=== PATIENT | male | born 1945 | race Caucasian/White ===

== ENCOUNTER 2021-09-23 08:03 | Emergency (ER) | payer MEDICARE, OTHER ==
[~2021-09-23] VITALS: Ht 175.3 cm; Wt 81.6 kg
--- NOTE | 2021-09-23 08:14 | ED Cough/URI ---
General Stated Complaint: COUGH,SOB Source: patient Exam Limitations: no limitations (BARRY HUYNH MD) History of Present Illness Date Seen by Provider: Sep 23, 2021 Time Seen by Provider: 08:16 Initial Comments Patient is a 76-year-old male who presents to the emergency department today with a chief complaint of progressive worsening shortness of breath over the last 2 weeks. 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 He is followed at . Last infusion of Keytruda was last Monday. He states for a couple of weeks he has had a dry nonproductive cough but in the last few days his shortness of breath is gotten significantly worse. He occasionally has hemoptysis and does so this morning. He has never had a blood clot or pulmonary embolism. He smoked 50 years ago. He does not require oxygen at home. Normally he states his sats are in the 98% range. On arrival to the ER he was 89, 90%. He denies fevers or chills. No known COVID positive contacts. He states that he masks with an N95 religiously. He is COVID vaccinated. He does not require the use of inhalers or a nebulizer machine at home ever. Denies swelling in his legs or cramping in his calves. No other URI symptoms. He called [facility] this morning and they advised to come to the emergency department and get a CAT scan of his chest. Patient is noted to be slightly tachycardic with a heart rate of 100. Blood pressure is slightly hypertensive. On 1-1/2 to 2 L he is 92%. No increased work of breathing or respiratory distress is noted. He can complete full sentences. He is diffusely wheezy. All other review of systems reviewed and negative except as stated. Timing/Duration: getting worse Severity/Quality: productive cough (Hemoptysis) Prior Episodes/Possible Cause: occasional episodes Associated Symptoms: chest pain/soreness (Has had a little bit of sharp pain in his chest with cough), cough, shortness of breath, wheezing (BARRY HUYNH MD) Allergies and Home Medications Allergies Coded Allergies: No Known Drug Intolerances (Verified Allergy, Unknown, 09/23/21) Patient Home Medication List Home Medication List Reviewed: Yes (BARRY HUYNH MD) Review of Systems Review of Systems Constitutional: see HPI EENTM: no symptoms reported Respiratory: cough, hemoptysis, short of breath Cardiovascular: chest pain (Sharp) Gastrointestinal: no symptoms reported Genitourinary: no symptoms reported Musculoskeletal: no symptoms reported Skin: no symptoms reported Psychiatric/Neurological: No Symptoms Reported (BARRY HUYNH MD) All Other Systems Reviewed Negative Unless Noted: Yes (BARRY HUYNH MD) Physical Exam Vital Signs - First Documented 09/23/21 08:12 Temp 37.0 Pulse 99 Resp 17 B/P (MAP) 183/88 (119) Pulse Ox 95 O2 Delivery Nasal Cannula O2 Flow Rate 2.00 (PRABHAKAR LÓPEZ DO) Capillary Refill : (BARRY HUYNH MD) Height: '" Weight: lbs. oz. kg; BMI Method: General Appearance: WD/WN, no apparent distress Eyes: Bilateral Eye Normal Inspection, Bilateral Eye PERRL, Bilateral Eye EOMI HEENT: PERRL/EOMI Neck: normal inspection Respiratory: no respiratory distress, no accessory muscle use; No decreased breath sounds, No accessory muscle use; wheezing Cardiovascular: regular rate, rhythm, tachycardia (100) Gastrointestinal: normal bowel sounds, non tender, soft Extremities: normal range of motion, non-tender, normal inspection, no pedal edema, no calf tenderness, other (Prior amputation right hand) Neurologic/Psychiatric: alert, normal mood/affect, oriented x 3 Skin: normal color, warm/dry (BARRY HUYNH MD) Progress/Results/Core Measures Suspected Sepsis SIRS Temperature: Pulse: Respiratory Rate: Laboratory Tests 09/23/21 08:34: White Blood Count 5.1 Blood Pressure / Mean: Laboratory Tests 09/23/21 08:34: Creatinine 1.18, INR Comment 1.0, Platelet Count 217, Total Bilirubin 0.6 (BARRY HUYNH MD) Results/Orders Lab Results Laboratory Tests Test 09/23/21 08:19 09/23/21 08:34 Range/Units SARS-CoV-2 RNA (RT-PCR) Not Detected Not Detecte White Blood Count 5.1 4.3-11.0 10^3/uL Red Blood Count 4.87 4.30-5.52 10^6/uL Hemoglobin 12.6 L 13.3-17.7 g/dL Hematocrit 39 L 40-54 % Mean Corpuscular Volume 81 80-99 fL Mean Corpuscular Hemoglobin 26 25-34 pg Mean Corpuscular Hemoglobin Concent 32 32-36 g/dL Red Cell Distribution Width 15.7 H 10.0-14.5 % Platelet Count 217 130-400 10^3/uL Mean Platelet Volume 9.5 9.0-12.2 fL Immature Granulocyte % (Auto) 0 % Neutrophils (%) (Auto) 70 42-75 % Lymphocytes (%) (Auto) 17 12-44 % Monocytes (%) (Auto) 7 0-12 % Eosinophils (%) (Auto) 6 0-10 % Basophils (%) (Auto) 1 0-10 % Neutrophils # (Auto) 3.5 1.8-7.8 10^3/uL Lymphocytes # (Auto) 0.8 L 1.0-4.0 10^3/uL Monocytes # (Auto) 0.4 0.0-1.0 10^3/uL Eosinophils # (Auto) 0.3 0.0-0.3 10^3/uL Basophils # (Auto) 0.0 0.0-0.1 10^3/uL Immature Granulocyte # (Auto) 0.0 0.0-0.1 10^3/uL Prothrombin Time 13.7 12.2-14.7 SEC INR Comment 1.0 0.8-1.4 Activated Partial Thromboplast Time 31 24-35 SEC Sodium Level 144 135-145 MMOL/L Potassium Level 3.9 3.6-5.0 MMOL/L Chloride Level 111 H 98-107 MMOL/L Carbon Dioxide Level 20 L 21-32 MMOL/L Anion Gap 13 5-14 MMOL/L Blood Urea Nitrogen 15 7-18 MG/DL Creatinine 1.18 0.60-1.30 MG/DL Estimat Glomerular Filtration Rate 64 BUN/Creatinine Ratio 13 Glucose Level 104 70-105 MG/DL Calcium Level 8.8 8.5-10.1 MG/DL Corrected Calcium 9.0 8.5-10.1 MG/DL Total Bilirubin 0.6 0.1-1.0 MG/DL Aspartate Amino Transf (AST/SGOT) 12 5-34 U/L Alanine Aminotransferase (ALT/SGPT) 12 0-55 U/L Alkaline Phosphatase 85 40-136 U/L Total Protein 6.0 L 6.4-8.2 GM/DL Albumin 3.7 3.2-4.5 GM/DL (MARIBEL,PRABHAKAR K DO) My Orders Orders - MARIBELJIMMYA K DO Lorazepam Tablet (Ativan Tablet) (09/23/21 18:15) Lorazepam Tablet (Ativan Tablet) (09/23/21 18:19) (MARIBEL,PRABHAKAR K DO) Medications Given in ED Current Medications Medications Dose Ordered Sig/Shane Route Start Time Stop Time Status Last Admin Dose Admin Fentanyl Citrate 50 mcg ONCE ONCE IVP 09/23/21 09:30 09/23/21 09:31 DC 09/23/21 09:36 50 MCG Fentanyl Citrate 50 mcg ONCE ONCE IVP 09/23/21 09:45 09/23/21 09:46 DC 09/23/21 09:59 50 MCG Iohexol 100 ml ONCE ONCE IV 09/23/21 09:45 09/23/21 09:47 DC 09/23/21 10:53 85 ML Lidocaine HCl 20 ml ONCE ONCE INJ 09/23/21 12:45 09/23/21 12:46 DC 09/23/21 12:50 20 ML Lorazepam 0.5 mg STK-MED ONCE .ROUTE 09/23/21 18:19 09/23/21 18:21 DC 09/23/21 18:22 1 MG Sodium Chloride 100 ml ONCE ONCE IV 09/23/21 09:45 09/23/21 09:47 DC 09/23/21 10:53 80 ML (MARIBEL,PRABHAKAR K DO) Vital Signs/I&O 09/23/21 09/23/21 08:12 08:12 Temp 37.0 Pulse 99 Resp 17 B/P (MAP) 183/88 (119) Pulse Ox 95 O2 Delivery Nasal Cannula Nasal Cannula O2 Flow Rate 2.00 (MARIBELPRABHAKAR K DO) Vital Signs/I&O Capillary Refill : (BARRY HUYNH MD) Progress Note #1: Time: 10:24 Progress Note SPoke with Dr Aj (surg) will be down to see. Patient pain improved. sats96% on 2L O2. 30-40% ptx on the left. obvious masses ion chest xray. pending CT Progress Note #2: Time: 11:57 Progress Note first call to [facility]; awaiting call back Progress Note #3: Time: 13:15 Progress Note Thora vent placed with Dr. Aj. Patient tolerated the procedure well. Postprocedural chest x-ray shows that the lung has reexpanded. Vital signs remained stable. Just after we placed the Thora vent [facility] called at approximately 1 PM. They have an accepting physician for our patient, Dr. Fowler has accepted. Progress Note #4: Time: 17:25 Progress Note Patient resting comfortably. I checked in with [facility] about 45 min ago - Still no bed assignment, Progress Note #5: Time: 17:38 Progress Note bed assignment obtained. LUPE Valentine arranging transport (BARRY HUYNH MD) Progress Note : Progress Note 1800--ASSUMED CARE OF PT, PENDING TRANSFER. 1830--[facility] HERE FOR TRANSPORT. PT HAD C/O BEING ANXIOUS, AND [facility] ORDERED PRIOR TO TRANSPORT (PRABHAKAR LÓPEZ DO) ECG Initial ECG Impression Date: Sep 23, 2021 Initial ECG Impression Time: 08:36 Initial ECG Rate: 96 Initial ECG Rhythm: Normal Sinus Initial ECG Intervals: Normal Initial ECG Impression: Normal Comment No ectopy, no ST segment elevation or depression; (BARRY HUYNH MD) Diagnostic Imaging Diagonstic Imaging: Xray Plain Films/CT/US/NM/MRI: chest Comments [facility] [place] [place] NAME: TRICIA MCFADDEN [facility] REC#: [id number] PT STATUS: REG ER : 1945 PHYSICIAN: BARRY HUYNH MD ADMIT DATE: 09/23/21/ER Draft Date of Exam:09/23/21 CHEST 1 VIEW, AP/PA ONLY INDICATION: Hypoxia, cough Frontal chest obtained at 1003 a.m. There is no prior study for comparison. Heart is mildly enlarged. There are multiple bilateral pulmonary masses suspicious for metastatic disease. There is a left apical and lateral basal pneumothorax, occupying about 30-40% of the lung volume. There is no pleural fluid. IMPRESSION: Bilateral pulmonary lesions are present compatible with metastases. There is a left pneumothorax as described above. Results were called to the Emergency Room at the time of dictation. Dictated on workstation # [id number] Dict: 09/23/21 1010 Trans: 09/23/21 1016 [facility] [place] [id number] Interpreted by: STANISLAW STEVE MD Electronically signed by: [facility]: CT Comments [facility] [place] NAME: TRICIA MCFADDEN [facility] REC#: [id number] PT STATUS: REG ER : 1945 PHYSICIAN: BARRY HUYNH MD ADMIT DATE: 09/23/21/ER Draft Date of Exam:09/23/21 CT ANGIO CHEST/ABD W PROCEDURE: CT angiography of the abdomen and chest with and without contrast. TECHNIQUE: After intravenous administration of contrast, thin section axial CT angiography of the abdomen and chest were obtained. 3D MIP reformats were provided. Auto Exposure Controls were utilized during the CT exam to meet ALARA standards for radiation dose reduction. INDICATION: Sarcoma. Patient had sudden onset of abdominal pain and hemoptysis. No prior studies are available for comparison. CT angiogram chest: The thoracic aorta is of normal caliber. No dissection is identified. Central pulmonary arteries are patent. There is a pericardial effusion. There is a moderate-sized right pleural effusion. No axillary lymphadenopathy is identified. No definite mediastinal lymphadenopathy is identified. There are multiple pulmonary masses consistent with metastatic disease. A large mass in the right infrahilar location measures approximately 7.7 cm AP by 7.2 cm transverse. The patient does have a large left pneumothorax as well, this is described on the chest radiograph earlier same day and called to the emergency department. CT ABDOMEN: There are low-attenuation lesions within the liver which appear to represent cysts. No definite solid liver mass is identified. The gallbladder surgically absent. The pancreas and spleen are unremarkable. No adrenal mass is detected. Kidneys contain low-attenuation lesions consistent with cysts. Aorta is nonaneurysmal. No abdominal aortic dissection is identified. The bowel loops are of normal caliber. There is no ascites. No central retroperitoneal or mesenteric lymphadenopathy is detected. Bony structures are nonacute. IMPRESSION: 1. A large left pneumothorax. 2. Pericardial effusion and moderate right pleural effusion. 3. Numerous bilateral pulmonary masses consistent with pulmonary metastatic disease. 4. Hepatic and renal cysts. 5. No evidence of thoracic or abdominal aortic aneurysm or dissection. Dictated on workstation # [id number] Dict: 09/23/21 1100 Trans: 09/23/21 1108 [facility] [id number] Interpreted by: ELOISE JOHN MD Electronically signed by: [facility]: Xray Plain Films/CT/US/NM/MRI: chest Comments [facility] [place] NAME: TRICIA MCFADDEN [facility] REC#: [id number] PT STATUS: REG ER : 1945 PHYSICIAN: BARRY HUYNH MD ADMIT DATE: 09/23/21/ER Signed Date of Exam:09/23/21 CHEST 1 VIEW, AP/PA ONLY INDICATION: Chest tube placement. TECHNIQUE: Frontal chest obtained at 01:10 p.m. and compared to same day at 10:03 a.m. FINDINGS: New left-sided pleural catheter is in place. The left pneumothorax seen previously has resolved. Multiple lung masses are noted, compatible with metastases. There is no significant pleural fluid. IMPRESSION: Resolution of previous left pneumothorax after left pleural catheter placement. Multiple suspicious pulmonary lesions are noted which are likely metastatic. 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 Fowler Transfer Facility: [facility] Method of Transfer: EMS (BARRY HUYNH MD) Departure-Patient Inst. Referrals: NO,LOCAL PHYSICIAN (PCP/Family) Primary Care Physician BARRY HUYNH MD Sep 23, 2021 08:14 PRABHAKAR LÓPEZ DO Sep 23, 2021 18:41
[2021-09-23 08:59] LABS: BASOPHILS % (AUTO) 1 % (0-10); EOSINOPHILS # (AUTO) 0.3 10^3/uL (0.0-0.3); EOSINOPHILS % (AUTO) 6 % (0-10); HEMATOCRIT 39 % (40-54); HEMOGLOBIN 12.6 g/dL (13.3-17.7); LYMPHOCYTES # (AUTO) 0.8 10^3/uL (1.0-4.0); LYMPHOCYTES % (AUTO) 17 % (12-44); MEAN CORPUSCULAR HEMOGLOBIN 26 pg (25-34); MEAN CORPUSCULAR HGB CONC 32 g/dL (32-36); MEAN CORPUSCULAR VOLUME 81 fL (80-99); MEAN PLATELET VOLUME 9.5 fL (9.0-12.2); MONOCYTES # (AUTO) 0.4 10^3/uL (0.0-1.0); MONOCYTES % (AUTO) 7 % (0-12); NEUTROPHILS # (AUTO) 3.5 10^3/uL (1.8-7.8); NEUTROPHILS % (AUTO) 70 % (42-75); PLATELET COUNT 217 10^3/uL (130-400); WHITE BLOOD COUNT 5.1 10^3/uL (4.3-11.0)
[2021-09-23 09:14] LABS: PROTHROMBIN TIME PATIENT 13.7 SEC (12.2-14.7)
[2021-09-23 09:24] LABS: ALBUMIN 3.7 GM/DL (3.2-4.5); BILIRUBIN,TOTAL 0.6 MG/DL (0.1-1.0); CALCIUM 8.8 MG/DL (8.5-10.1); CREATININE SERUM 1.18 MG/DL (0.60-1.30); POTASSIUM 3.9 MMOL/L (3.6-5.0)
[2021-09-23] MEDS ORDERED: fentaNYL INJ 100 MCG/2 ML AMP IVP ONE ×2 (09:30→09:45)
[2021-09-23] MEDS ORDERED: NS 100 ML (IVPB) BAG IV ONE (09:45)
[2021-09-23] MEDS ORDERED: IOHEXOL 350 MG/ML 100 ML (OMNIPAQUE 350) VIAL IV ONE (09:45)
--- NOTE | 2021-09-23 10:17 | Diagnostic Imaging Report ---
INDICATION: Hypoxia, cough Frontal chest obtained at 1003 a.m. There is no prior study for comparison. Heart is mildly enlarged. There are multiple bilateral pulmonary masses suspicious for metastatic disease. There is a left apical and lateral basal pneumothorax, occupying about 30-40% of the lung volume. There is no pleural fluid. IMPRESSION: Bilateral pulmonary lesions are present compatible with metastases. There is a left pneumothorax as described above. Results were called to the Emergency Room at the time of dictation. Dictated by: Dictated on workstation # [id number]
[2021-09-23] MEDS ORDERED: morphine INJ 10 MG/ML 1ML (SYR OR VIAL) IVP STA ×2 (11:05→14:58)
--- NOTE | 2021-09-23 11:09 | Diagnostic Imaging Report ---
PROCEDURE: CT angiography of the abdomen and chest with and without contrast. TECHNIQUE: After intravenous administration of contrast, thin section axial CT angiography of the abdomen and chest were obtained. 3D MIP reformats were provided. Auto Exposure Controls were utilized during the CT exam to meet ALARA standards for radiation dose reduction. INDICATION: Sarcoma. Patient had sudden onset of abdominal pain and hemoptysis. No prior studies are available for comparison. CT angiogram chest: The thoracic aorta is of normal caliber. No dissection is identified. Central pulmonary arteries are patent. There is a pericardial effusion. There is a moderate-sized right pleural effusion. No axillary lymphadenopathy is identified. No definite mediastinal lymphadenopathy is identified. There are multiple pulmonary masses consistent with metastatic disease. A large mass in the right infrahilar location measures approximately 7.7 cm AP by 7.2 cm transverse. The patient does have a large left pneumothorax as well, this is described on the chest radiograph earlier same day and called to the emergency department. CT ABDOMEN: There are low-attenuation lesions within the liver which appear to represent cysts. No definite solid liver mass is identified. The gallbladder surgically absent. The pancreas and spleen are unremarkable. No adrenal mass is detected. Kidneys contain low-attenuation lesions consistent with cysts. Aorta is nonaneurysmal. No abdominal aortic dissection is identified. The bowel loops are of normal caliber. There is no ascites. No central retroperitoneal or mesenteric lymphadenopathy is detected. Bony structures are nonacute. IMPRESSION: 1. A large left pneumothorax. 2. Pericardial effusion and moderate right pleural effusion. 3. Numerous bilateral pulmonary masses consistent with pulmonary metastatic disease. 4. Hepatic and renal cysts. 5. No evidence of thoracic or abdominal aortic aneurysm or dissection. Dictated by: Dictated on workstation # [id number]
--- NOTE | 2021-09-23 11:47 | Consultation - Surgery ---
TUCKER FERRER 09/23/21 1147: History of Present Illness History of Present Illness Patient Consulted On(shauna/time) 09/23/21 11:40 Date Seen by Provider: Sep 23, 2021 Time Seen by Provider: 11:41 History of Present Illness Consulted by Dr. Marx for this patient. Patient is a 76 y/o M with hx of sarcoma that has metastasized to the lungs presenting with CC of worsening shortness of breath which onset about a week ago. Patient reports he had sarcoma of the right hand which had to be removed and that the cancer has metastasized to his lungs. He is being treated at and received his last tx a week ago, after which his symptoms had started. He also reports some episodes of hemoptysis. Denies any fever or chills at this time. Has some RUQ tenderness to palpation. After calling this morning he was told to come to the ED for evaluation. Chest XR today shows bilateral pulmonary lesions compatible with metastases. There is also a left pneumothorax. Chest CT today also confirms a large left pneumothorax. EKG done today was normal. Pt is not any blood thinners. 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 ) Cancer History of Cancer: Yes (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) Review of Systems-General Constitutional: No chills, No diaphoresis EENTM: No hearing loss, No blurred vision Respiratory: cough, short of breath Cardiovascular: No chest pain, No palpitations Gastrointestinal: abdominal pain (RUQ); No nausea Genitourinary: No decreased output, No discharge Musculoskeletal: No back pain, No joint pain Skin: No change in color, No change in hair/nails Physical Exam-General Problems Physical Exam Vital Signs Vital Signs - First Documented 09/23/21 08:12 Temp 37.0 Pulse 99 Resp 17 B/P (MAP) 183/88 (119) Pulse Ox 95 O2 Delivery Nasal Cannula O2 Flow Rate 2.00 Capillary Refill : Less Than 3 Seconds General Appearance: WD/WN, no apparent distress HEENT: PERRL/EOMI, normal ENT inspection Neck: supple, normal inspection Respiratory: chest non-tender, no accessory muscle use Cardiovascular: no edema, no JVD Gastrointestinal: soft, tenderness (RUQ) Rectal: deferred Back: normal inspection, no CVA tenderness Extremities: normal range of motion, non-tender Neurologic/Psychiatric: alert, normal mood/affect Skin: normal color, warm/dry Lymphatic: no adenopathy Data Review Labs Laboratory Tests 09/23/21 08:19: SARS-CoV-2 RNA (RT-PCR) Not Detected 09/23/21 08:34: White Blood Count 5.1, Red Blood Count 4.87, Hemoglobin 12.6L, Hematocrit 39L, Mean Corpuscular Volume 81, Mean Corpuscular Hemoglobin 26, Mean Corpuscular Hemoglobin Concent 32, Red Cell Distribution Width 15.7H, Platelet Count 217, Mean Platelet Volume 9.5, Immature Granulocyte % (Auto) 0, Neutrophils (%) (Auto) 70, Lymphocytes (%) (Auto) 17, Monocytes (%) (Auto) 7, Eosinophils (%) (Auto) 6, Basophils (%) (Auto) 1, Neutrophils # (Auto) 3.5, Lymphocytes # (Auto) 0.8L, Monocytes # (Auto) 0.4, Eosinophils # (Auto) 0.3, Basophils # (Auto) 0.0, Immature Granulocyte # (Auto) 0.0, Prothrombin Time 13.7, INR Comment 1.0, Activated Partial Thromboplast Time 31, Sodium Level 144, Potassium Level 3.9, Chloride Level 111H, Carbon Dioxide Level 20L, Anion Gap 13, Blood Urea Nitrogen 15, Creatinine 1.18, Estimat Glomerular Filtration Rate 64, BUN/Creatinine Ratio 13, Glucose Level 104, Calcium Level 8.8, Corrected Calcium 9.0, Total Bilirubin 0.6, Aspartate Amino Transf (AST/SGOT) 12, Alanine Aminotransferase (ALT/SGPT) 12, Alkaline Phosphatase 85, Total Protein 6.0L, Albumin 3.7 Assessment/Plan Assessment/Plan Assessment/Plan Left Lung Pneumothorax 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 Patient is a 76-year-old male with history of sarcoma of the right hand which she has had right upper extremity amputation. He is also with no metastasis to his lungs. Has been treated at . Patient presented to the emergency department with some abdominal pain more in the right upper quadrant. He is also having increasing shortness of breath and weakness. Patient states nothing making things better or worse. Patient had a chest x-ray demonstrating a left pneumothorax and multiple masses of the bilateral lungs. CT of the chest demonstrating multiple lung masses and large left pneumothorax and right pleural effusion. Allergies and Home Medications Allergies Coded Allergies: No Known Drug Intolerances (Verified Allergy, Unknown, 09/23/21) Patient Home Medication List Home Medication List Reviewed: Yes Past Gzgxuej-Gvhnqu-Lfkhow Hx Surgeries Surgeries: Amputation, Gallbladder (cholecystectomy) Reviewed Nursing Assessment Reviewed/Agree w Nursing PMH: Yes Family Medical History Significant Family History: No Pertinent Family Hx Review of Systems-General Constitutional: No chills, No diaphoresis EENTM: No hearing loss, No blurred vision Respiratory: cough, short of breath Cardiovascular: No chest pain, No palpitations Gastrointestinal: abdominal pain (RUQ); No nausea, No vomiting Genitourinary: No decreased output, No discharge Musculoskeletal: No back pain, No joint pain Skin: No change in color, No change in hair/nails Psychiatric/Neurological: Denies Anxiety, Denies Depressed, Denies Emotional Problems All Other Systems Reviewed Negative Unless Noted: Yes (Negative excepted noted.) Physical Exam-General Problems Physical Exam General Appearance: WD/WN, no apparent distress HEENT: PERRL/EOMI, normal ENT inspection Neck: non-tender, supple, normal inspection Respiratory: chest non-tender, no accessory muscle use Cardiovascular: regular rate, rhythm, no JVD Gastrointestinal: soft, tenderness (RUQ) Rectal: deferred Back: normal inspection, no CVA tenderness Extremities: normal range of motion, non-tender, other (Right forearm amputation) Neurologic/Psychiatric: alert, normal mood/affect, oriented x 3 Skin: normal color, warm/dry Lymphatic: no adenopathy Assessment/Plan Assessment/Plan Assessment/Plan Left lung pneumothorax Shortness of breath 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 Patient understands and will proceed with left Thora vent p lacement. Patient with possible cause of pneumothorax due to metastatic lung lesion likely will need thoracic consultation. Patient being transferred to arranged by emergency physician. Supervisory-Addendum Brief Verification & Attestation Participated in pt care: history, MDM, physical Personally performed: exam, history, MDM, supervision of care Care discussed with: Medical Student Procedures: n/a Results interpretation: Verified all documentation Verification and Attestation of Medical Student E/M Service A medical student performed and documented this service in my presence. I reviewed and verified all information documented by the medical student and made modifications to such information, when appropriate. I personally performed the physical exam and medical decision making. Pablo Aj, Sep 23, 2021,21:16 TUCKER FERRER Sep 23, 2021 11:47 PABLO AJ DO Sep 23, 2021 21:16
[2021-09-23] MEDS ORDERED: LIDOCAINE 1% INJ 20 ML VIAL INJ ONE (12:45)
--- NOTE | 2021-09-23 13:23 | Diagnostic Imaging Report ---
INDICATION: Chest tube placement. TECHNIQUE: Frontal chest obtained at 01:10 p.m. and compared to same day at 10:03 a.m. FINDINGS: New left-sided pleural catheter is in place. The left pneumothorax seen previously has resolved. Multiple lung masses are noted, compatible with metastases. There is no significant pleural fluid. IMPRESSION: Resolution of previous left pneumothorax after left pleural catheter placement. Multiple suspicious pulmonary lesions are noted which are likely metastatic. Dictated by: Dictated on workstation # [id number]
[2021-09-23] MEDS ORDERED: LORazepam 1 MG (ATIVAN) TAB PO ONE (18:15)
[2021-09-23] MEDS ORDERED: LORazepam 0.5 MG (ATIVAN) TABLET ONE (18:19)
[2021-09-23 18:33] VITALS: BP 137/68
--- NOTE | 2021-09-24 06:07 | OPERATIVE REPORT ---
DATE OF SERVICE: 09/23/2021 PREOPERATIVE DIAGNOSIS: Left pneumothorax. POSTOPERATIVE DIAGNOSIS: Left pneumothorax. PROCEDURE: Left Thora-Vent placement. SURGEON: Pablo Aj DO. ANESTHESIA: Local anesthetic. ESTIMATED BLOOD LOSS: Scant. COMPLICATIONS: None. INDICATIONS: The patient is a 76-year-old male who presented to the Emergency Department. He was found to have a moderate to large left pneumothorax. He understands risks and benefits of procedure and wishes to proceed. Consent was signed in the chart. DESCRIPTION OF PROCEDURE: The patient was lying down in the supine position. The left chest was prepped and draped in sterile fashion. Timeout was performed. Local anesthetic was infiltrated at the midclavicular line approximately the fourth rib interspace. An 11-blade scalpel was used to make a small skin incision. The Thora-Vent was then inserted through the anterior chest wall. Once this popped into the chest cavity, the catheter was then advanced, and the trocar was removed. The Thora-Vent was secured in the usual fashion. Air was evacuated. The patient tolerated procedure well without any complications. Chest x-ray pending. Job ID: [id number] DocumentID: [id number] Dictated Date: 09/23/2021 20:14:06 Gmat Tutor Date: 09/24/2021 06:07:33 Dictated By: PABLO AJ DO
== END 2021-09-23 18:33 | disposition short-term general hospital (02) ==
LOC: ER 08:08
DX: J93.9 Pneumothorax, unspecified (principal); C34.90 Malignant neoplasm of unspecified part of unspecified bronchus or lung; Z20.822 Contact with and (suspected) exposure to COVID-19
CPT/HCPCS: 36415; 71045; 71275; 74175; 80053; 85025; 85610; 85730; 87636

== ENCOUNTER 2021-09-28 17:05 | Observation (INO) | payer MEDICARE ==
[~2021-09-28] VITALS: Ht 175.3 cm; Wt 83.9 kg
[2021-09-28 17:38] LABS: BILIRUBIN,URINE NEGATIVE (NEGATIVE); CLARITY,URINE CLEAR; COLOR,URINE YELLOW; GLUCOSE, URINE (UA) NEGATIVE (NEGATIVE); KETONES,URINE NEGATIVE (NEGATIVE); LEUKOCYTE ESTERASE ,URINE 2+ (NEGATIVE); NITRITE,URINE NEGATIVE (NEGATIVE); PROTEIN,URINE NEGATIVE (NEGATIVE)
[2021-09-28] MEDS ORDERED: NS IV 500 ML 500 ML IV STA (17:44)
--- NOTE | 2021-09-28 17:48 | ED GU-Male ---
General Chief Complaint: - Reproductive Stated Complaint: ABDOMINAL PAIN Source: patient Exam Limitations: no limitations History of Present Illness Date Seen by Provider: Sep 28, 2021 Time Seen by Provider: 17:45 Initial Comments Patient is a 76-year-old male who presents to the ED with lower back pain and suprapubic pain. Started a few hours ago while driving back from [facility]. Was discharged from [facility] after being diagnosed with a pneumothorax was seen here last week and transferred. Denies any chest pain or shortness of breath. History of kidney stones with surgical removal of his prostate. He had several stones removed at [facility] in the past. States he had decreased urine output while driving down from [facility] but did urinate which relieved some of his discomfort. He reports of burning after urination on arrival. No fever, vomiting, diarrhea, chest pain, cough, shortness of breath, fever, chills, change in mental state. Diagnosed with metastatic carcinoma. Allergies and Home Medications Allergies Coded Allergies: No Known Drug Intolerances (Verified Allergy, Unknown, 09/23/21) Patient Home Medication List Home Medication List Reviewed: Yes Cefdinir (Cefdinir) 300 Mg Capsule, 300 MG PO BID Prescribed by: MATILDE HUYNH on 09/29/21 1122 Review of Systems Review of Systems Constitutional: No chills, No diaphoresis, No malaise, No weakness EENTM: No blurred vision Respiratory: No cough Cardiovascular: No chest pain Gastrointestinal: No abdominal pain, No diarrhea, No nausea, No vomiting Genitourinary: burning; denies discharge, denies dysuria, denies frequency; flank pain Musculoskeletal: back pain; No joint pain Skin: No change in color All Other Systemes Reviewed Negative Unless Noted: Yes Past Xvkgrdz-Smttfh-Fbdrqx Hx Past Medical History Amputation, 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 oz. kg; 26.00 BMI Method: General Appearance: WD/WN, no apparent distress HEENT: PERRL/EOMI, normal ENT inspection, TMs normal, pharynx normal Neck: non-tender, full range of motion, supple Cardiovascular: regular rate, rhythm, no edema, no gallop, no JVD Respiratory: chest non-tender, lungs clear, normal breath sounds Gastrointestinal: normal bowel sounds, soft, no organomegaly, tenderness (Suprapubic tenderness.) Back: normal inspection, no CVA tenderness, no vertebral tenderness Extremities: normal range of motion, non-tender, normal inspection, no pedal edema Neurologic/Psychiatric: farmer vegetable II-XII nml as tested, no motor/sensory deficits, alert, normal mood/affect, oriented x 3 Skin: normal color, warm/dry Progress/Results/Core Measures Suspected Sepsis SIRS Temperature: Pulse: Respiratory Rate: Laboratory Tests 09/28/21 17:53: White Blood Count 6.0 Blood Pressure / Mean: Laboratory Tests 09/28/21 17:53: Creatinine 1.19, Platelet Count 244, Total Bilirubin 0.4 Results/Orders Lab Results Laboratory Tests Test 09/28/21 17:14 09/28/21 17:53 Range/Units Urine Color YELLOW Urine Clarity CLEAR Urine pH 5.0 5-9 Urine Specific [place] 1.010 L 1.016-1.022 Urine Protein NEGATIVE NEGATIVE Urine Glucose (UA) NEGATIVE NEGATIVE Urine Ketones NEGATIVE NEGATIVE Urine Nitrite NEGATIVE NEGATIVE Urine Bilirubin NEGATIVE NEGATIVE Urine Urobilinogen 0.2 < = 1.0 MG/DL Urine Leukocyte Esterase 2+ H NEGATIVE Urine RBC (Auto) NEGATIVE NEGATIVE Urine RBC NONE /HPF Urine WBC 5-10 H /HPF Urine Squamous Epithelial Cells 2-5 /HPF Urine Crystals NONE /LPF Urine Bacteria FEW H /HPF Urine Casts NONE /LPF Urine Mucus SMALL H /LPF Urine Culture Indicated YES White Blood Count 6.0 4.3-11.0 10^3/uL Red Blood Count 4.54 4.30-5.52 10^6/uL Hemoglobin 11.8 L 13.3-17.7 g/dL Hematocrit 37 L 40-54 % Mean Corpuscular Volume 82 80-99 fL Mean Corpuscular Hemoglobin 26 25-34 pg Mean Corpuscular Hemoglobin Concent 32 32-36 g/dL Red Cell Distribution Width 15.6 H 10.0-14.5 % Platelet Count 244 130-400 10^3/uL Mean Platelet Volume 9.2 9.0-12.2 fL Immature Granulocyte % (Auto) 0 % Neutrophils (%) (Auto) 69 42-75 % Lymphocytes (%) (Auto) 14 12-44 % Monocytes (%) (Auto) 7 0-12 % Eosinophils (%) (Auto) 9 0-10 % Basophils (%) (Auto) 1 0-10 % Neutrophils # (Auto) 4.1 1.8-7.8 10^3/uL Lymphocytes # (Auto) 0.8 L 1.0-4.0 10^3/uL Monocytes # (Auto) 0.4 0.0-1.0 10^3/uL Eosinophils # (Auto) 0.5 H 0.0-0.3 10^3/uL Basophils # (Auto) 0.1 0.0-0.1 10^3/uL Immature Granulocyte # (Auto) 0.0 0.0-0.1 10^3/uL Sodium Level 139 135-145 MMOL/L Potassium Level 4.0 3.6-5.0 MMOL/L Chloride Level 105 98-107 MMOL/L Carbon Dioxide Level 25 21-32 MMOL/L Anion Gap 9 5-14 MMOL/L Blood Urea Nitrogen 21 H 7-18 MG/DL Creatinine 1.19 0.60-1.30 MG/DL Estimat Glomerular Filtration Rate 63 BUN/Creatinine Ratio 18 Glucose Level 107 H 70-105 MG/DL Calcium Level 9.1 8.5-10.1 MG/DL Corrected Calcium 9.4 8.5-10.1 MG/DL Total Bilirubin 0.4 0.1-1.0 MG/DL Aspartate Amino Transf (AST/SGOT) 16 5-34 U/L Alanine Aminotransferase (ALT/SGPT) 16 0-55 U/L Alkaline Phosphatase 94 40-136 U/L Total Protein 6.4 6.4-8.2 GM/DL Albumin 3.6 3.2-4.5 GM/DL My Orders Orders - ELMA FABIAN Urinalysis (09/28/21 17:29) Cbc With Automated Diff (09/28/21 17:44) Comprehensive Metabolic Panel (09/28/21 17:44) Ct Abd/Pelvis Wo(Kidney Stone) (09/28/21 17:44) Ns Iv 500 Ml (Sodium Chloride 0.9%) (09/28/21 17:44) Urine Culture (09/28/21 17:14) Chest 1 View, Ap/Pa Only (09/28/21 18:14) Vital Signs/I&O 09/28/21 17:38 Temp 37.8 Pulse 91 Resp 24 B/P (MAP) 156/81 (106) Pulse Ox 94 Capillary Refill : Departure Communication (Admissions) Time/Spoke to Admitting Phy: 19:00 Dr. Gamez accepts Communication (PCP) Patient on arrival was concerning with urinary symptoms of burning with urination while traveling home from [facility]. Patient was able to urinate. History of prostatectomy. Reports suprapubic discomfort. History of kidney and ureter stones. CT abdomen and pelvis was negative for any nephrolithiasis, urolithiasis. Patient lab work was reassuring. 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 Patient is currently on keytruda at this time every 3 weeks. Patient started having a coughing fit here in the ER resulting in dyspnea. Patient was placed on 4 L as her his oxygen dropped down into the mid upper 80s. Improvement after oxygen. Chest x- ray showed a left pneumothorax. Patient states his pneumothorax improved while at and had his Thora vent removed 2 days prior. Patient was discussed with Dr. Gamez who talked with family extensively regarding his current condition. Family agreed to place a Thoravent and admission for observation. Patient was given cefepime for urinary tract infection. Dr. Gamez agreed to admit patient for observation at this time. Continue weaning off oxygen. Impression Primary Impression: Pneumothorax, left Additional Impression: UTI (urinary tract infection) Disposition: ADMITTED INPATIENT Condition: Stable Admissions Decision to Admit Reason: Admit from ER (General) Decision to Admit/Date: Sep 28, 2021 Time/Decision to Admit Time: 21:00 Departure-Patient Inst. Referrals: NO,LOCAL PHYSICIAN (PCP/Family) Primary Care Physician Scripts Cefdinir (Cefdinir) 300 Mg Capsule 300 MG PO BID, #10 CAP Prov: MATILDE HUYNH DO 09/29/21 ELMA FABIAN Sep 28, 2021 17:48
[2021-09-28 18:02] LABS: BASOPHILS # (AUTO) 0.1 10^3/uL (0.0-0.1); BASOPHILS % (AUTO) 1 % (0-10); EOSINOPHILS # (AUTO) 0.5 10^3/uL (0.0-0.3); EOSINOPHILS % (AUTO) 9 % (0-10); HEMATOCRIT 37 % (40-54); HEMOGLOBIN 11.8 g/dL (13.3-17.7); LYMPHOCYTES # (AUTO) 0.8 10^3/uL (1.0-4.0); LYMPHOCYTES % (AUTO) 14 % (12-44); MEAN CORPUSCULAR HEMOGLOBIN 26 pg (25-34); MEAN CORPUSCULAR HGB CONC 32 g/dL (32-36); MEAN CORPUSCULAR VOLUME 82 fL (80-99); MEAN PLATELET VOLUME 9.2 fL (9.0-12.2); MONOCYTES # (AUTO) 0.4 10^3/uL (0.0-1.0); MONOCYTES % (AUTO) 7 % (0-12); NEUTROPHILS # (AUTO) 4.1 10^3/uL (1.8-7.8); NEUTROPHILS % (AUTO) 69 % (42-75); PLATELET COUNT 244 10^3/uL (130-400)
[2021-09-28 18:03] LABS: BACTERIA,URINE FEW /HPF
--- NOTE | 2021-09-28 18:11 | Diagnostic Imaging Report ---
PROCEDURE: CT urinary tract, rule out kidney stone. TECHNIQUE: Multiple contiguous axial images were obtained through the abdomen and pelvis without the use of intravenous contrast. Auto Exposure Controls were utilized during the CT exam to meet ALARA standards for radiation dose reduction. INDICATION: Right-sided flank pain. COMPARISON: Correlation is made with recent CT from 01/02/2022. FINDINGS: Imaging through the lung bases demonstrates moderate-sized right pleural effusion, similar to prior exam. The previously noted bilateral pulmonary masses are again noted. There continues to be a left-sided pneumothorax, decreased in size when compared with prior exam. Hepatic low-attenuation lesions again noted; suggestive of cysts. Gallbladder is surgically absent. Pancreas and spleen are unremarkable. No adrenal mass is identified. Low-attenuation lesions in the kidneys are again noted, consistent with cysts. Aorta is nonaneurysmal. The bowel loops remain normal in caliber without obstruction. There is moderate stool in the rectum and sigmoid colon. The bladder is unremarkable. Prostate contains multiple calcifications. No inflammatory changes in the abdomen or pelvis are identified. IMPRESSION: 1. Continued moderate right pleural effusion and bilateral pulmonary masses. Left-sided pneumothorax is again noted but appears smaller when compared with exam one week earlier. 2. Hepatic and renal cysts. No acute abnormality in the abdomen or pelvis is identified. Dictated by: Dictated on workstation # [id number]
--- NOTE | 2021-09-28 18:36 | Diagnostic Imaging Report ---
INDICATION: Cough. TIME OF EXAM: 06:12 p.m. COMPARISON: Correlation is made with prior chest from 09/23/2021. FINDINGS: Small-caliber left chest tube has been removed. There is redevelopment of a left-sided pneumothorax, likely approximately 20%. Bilateral pulmonary masses persist. Heart size is stable. IMPRESSION: Left-sided pneumothorax, as described. Results were discussed with Lauro Basilio of the emergency department prior to this dictation. Dictated by: Dictated on workstation # [id number]
[2021-09-28 18:46] LABS: BILIRUBIN,TOTAL 0.4 MG/DL (0.1-1.0); CALCIUM 9.1 MG/DL (8.5-10.1); CREATININE SERUM 1.19 MG/DL (0.60-1.30); TOTAL PROTEIN 6.4 GM/DL (6.4-8.2)
[2021-09-28 18:47] LABS: ALBUMIN 3.6 GM/DL (3.2-4.5)
--- NOTE | 2021-09-28 20:04 | Consultation - Surgery ---
History of Present Illness History of Present Illness Patient Consulted On(shauna/time) 09/28/21 19:56 Time Seen by Provider: 18:43 History of Present Illness Surgery asked to consult regarding pneumothorax and chest pain. HPI per ED: Patient is a 76-year-old male who presents to the ED with lower back pain and suprapubic pain. Started a few hours ago while driving back from [facility]. Was discharged from [facility] after being diagnosed with a pneumothorax was seen here last week and transferred. Denies any chest pain or shortness of breath. History of kidney stones with surgical removal of his prostate. He had several stones removed at [facility] in the past. States he had decreased urine output while driving down from [facility] but did urinate which relieved some of his discomfort. He reports of burning after urination on arrival. No fever, vomiting, diarrhea, chest pain, cough, shortness of breath, fever, chills, change in mental state. Diagnosed with metastatic carcinoma. When I saw pt he was resting comfortably in the ER bed, had O2 on, pulse ox be tween 92-98% on 4L. His biggest complaint was pain in bladder area and cough. He was just released from , states they pulled the Thoravent 2 days ago. He was coughing a lot on the way home and then felt chest pain before he came into ER. Allergies and Home Medications Allergies Coded Allergies: No Known Drug Intolerances (Verified Allergy, Unknown, 09/23/21) Patient Home Medication List Home Medication List Reviewed: Yes Past Yipsmhj-Cqfqks-Nuykuy Hx Patient Social History Smoking Status: Former Smoker Alcohol Use?: No Surgeries History of Surgeries: Yes Surgeries: Amputation, Gallbladder Respiratory History of Respiratory Disorde: Yes (Pneumothorax, Stage IV Lung CA) Respiratory Disorders: COPD Cardiovascular History of Cardiac Disorders: Yes Cardiac Disorders: Cardiomyopathy Musculoskeletal History of Musculoskeletal Dis: Yes Musculoskeletal Disorders: Amputee Cancer 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, Lung Family Medical History Significant Family History: No Pertinent Family Hx Review of Systems-General Constitutional: No diaphoresis; malaise, weakness EENTM: No blurred vision, No mouth swelling, No epistaxis Respiratory: cough, dyspnea on exertion; No hemoptysis; short of breath Cardiovascular: chest pain; No edema Gastrointestinal: No abdominal pain, No jaundice, No nausea, No vomiting Genitourinary: dysuria, frequency; No hematuria Musculoskeletal: joint pain, joint swelling, muscle pain, muscle stiffness Skin: No change in color, No change in hair/nails Psychiatric/Neurological: Denies Anxiety, Denies Depressed, Denies Seizure Physical Exam-General Problems Physical Exam Vital Signs Vital Signs - First Documented 09/28/21 17:38 Temp 37.8 Pulse 91 Resp 24 B/P (MAP) 156/81 (106) Pulse Ox 94 Capillary Refill : General Appearance: WD/WN, mild distress Eyes: Bilateral Eye PERRL, Bilateral Eye EOMI HEENT: pharynx normal; No scleral icterus (R) Respiratory: no respiratory distress, no accessory muscle use, decreased breath sounds (left), crackles Cardiovascular: regular rate, rhythm, no murmur Gastrointestinal: soft, no organomegaly Extremities: no pedal edema, no calf tenderness, other (right hand amputation) Neurologic/Psychiatric: alert, normal mood/affect, oriented x 3 Skin: normal color, warm/dry Data Review Labs Laboratory Tests 09/28/21 17:14: Urine Color YELLOW, Urine Clarity CLEAR, Urine pH 5.0, Urine Specific [place] 1.010L, Urine Protein NEGATIVE, Urine Glucose (UA) NEGATIVE, Urine Ketones NEGATIVE, Urine Nitrite NEGATIVE, Urine Bilirubin NEGATIVE, Urine Urobilinogen 0.2, Urine Leukocyte Esterase 2+H, Urine RBC (Auto) NEGATIVE, Urine RBC NONE, Urine WBC 5-10H, Urine Squamous Epithelial Cells 2-5, Urine Crystals NONE, Urine Bacteria FEWH, Urine Casts NONE, Urine Mucus SMALLH, Urine Culture Indicated YES 09/28/21 17:53: White Blood Count 6.0, Red Blood Count 4.54, Hemoglobin 11.8L, Hematocrit 37L, Mean Corpuscular Volume 82, Mean Corpuscular Hemoglobin 26, Mean Corpuscular Hemoglobin Concent 32, Red Cell Distribution Width 15.6H, Platelet Count 244, Mean Platelet Volume 9.2, Immature Granulocyte % (Auto) 0, Neutrophils (%) (Auto) 69, Lymphocytes (%) (Auto) 14, Monocytes (%) (Auto) 7, Eosinophils (%) (Auto) 9, Basophils (%) (Auto) 1, Neutrophils # (Auto) 4.1, Lymphocytes # (Auto) 0.8L, Monocytes # (Auto) 0.4, Eosinophils # (Auto) 0.5H, Basophils # (Auto) 0.1, Immature Granulocyte # (Auto) 0.0, Sodium Level 139, Potassium Level 4.0, Chloride Level 105, Carbon Dioxide Level 25, Anion Gap 9, Blood Urea Nitrogen 21H, Creatinine 1.19, Estimat Glomerular Filtration Rate 63, BUN/Creatinine Ratio 18, Glucose Level 107H, Calcium Level 9.1, Corrected Calcium 9.4, Total Bilirubin 0.4, Aspartate Amino Transf (AST/SGOT) 16, Alanine Aminotransferase (ALT/SGPT) 16, Alkaline Phosphatase 94, Total Protein 6.4, Albumin 3.6 Radiology Date of Exam:09/28/21 CT ABD/PELVIS WO(KIDNEY STONE) PROCEDURE: CT urinary tract, rule out kidney stone. TECHNIQUE: Multiple contiguous axial images were obtained through the abdomen and pelvis without the use of intravenous contrast. Auto Exposure Controls were utilized during the CT exam to meet ALARA standards for radiation dose reduction. INDICATION: Right-sided flank pain. COMPARISON: Correlation is made with recent CT from 01/02/2022. FINDINGS: Imaging through the lung bases demonstrates moderate-sized right pleural effusion, similar to prior exam. The previously noted bilateral pulmonary masses are again noted. There continues to be a left-sided pneumothorax, decreased in size when compared with prior exam. Hepatic low-attenuation lesions again noted; suggestive of cysts. Gallbladder is surgically absent. Pancreas and spleen are unremarkable. No adrenal mass is identified. Low-attenuation lesions in the kidneys are again noted, consistent with cysts. Aorta is nonaneurysmal. The bowel loops remain normal in caliber without obstruction. There is moderate stool in the rectum and sigmoid colon. The bladder is unremarkable. Prostate contains multiple calcifications. No inflammatory changes in the abdomen or pelvis are identified. IMPRESSION: 1. Continued moderate right pleural effusion and bilateral pulmonary masses. Left-sided pneumothorax is again noted but appears smaller when compared with exam one week earlier. 2. Hepatic and renal cysts. No acute abnormality in the abdomen or pelvis is identified. Dictated by: Dictated on workstation # [id number] Dict: 09/28/214 Trans: 09/28/211816 [id number] [id number] Interpreted by: ELOISE JOHN MD Electronically signed by: ELOISE JOHN MD 09/28/215 Assessment/Plan Assessment/Plan Assessment/Plan Pneumothorax Metastatic Lung CA I spent over an hour talking to the pt and his nephew and then . I went over all options (going home no oxygen, going home with oxygen, Thoravent, being admitted on O2). I also talked to them about what Stage IV cancer means and tried to give them a realistic idea of what that means; prognosis, quality of life and possibility/length of rest of life. I stressed that I couldn't give them definites; I think unfortunately [facility] gave them too much hope. I just wanted to give them facts and options. I recommended at least for now, be admitted on O2 and reassess for possible Thoravent in the am (sooner if he wanted or went into distress) again telling them that they had final say in all decisions. No decision is wrong and quality of life is sometimes the most important thing. Pt decided he wanted to get Thoravent so that he could go home. DEAN SCHMIDT DO Sep 28, 2021 20:04
[2021-09-28] MEDS ORDERED: LIDOCAINE 1% INJ 20 ML VIAL ONE (20:38)
[2021-09-28] MEDS ORDERED: morphine INJ 10 MG/ML 1ML (SYR OR VIAL) ONE (20:49)
--- NOTE | 2021-09-28 20:55 | Progress Note-Post Operative ---
Post-Operative Progess Note Surgeon (s)/Diesel Power Shovel Operator (s) Surgeon DEAN SCHMIDT DO Diesel Power Shovel Operator: none Pre-Operative Diagnosis Pneumothorax Post-Operative Diagnosis Same Procedure & Operative Findings Date of Procedure 09/28/21 Procedure Performed/Findings Thoravent placement Anesthesia Type local lidocaine Estimated Blood Loss Estimated blood loss (mL): scant Specimens/Packing Specimens Removed none, but guy off appx 300ml of air from lung Packin DEAN SCHMIDT DO Sep 28, 2021 20:55
--- NOTE | 2021-09-28 21:34 | Diagnostic Imaging Report ---
INDICATION: Thoracostomy tube Portable AP view of the chest is obtained. Since the study of 1812 hours, there has been placement of left Thora-Vent with reexpansion of the left lung. Bilateral pulmonary opacities are not significantly changed. IMPRESSION: Resolution of left pneumothorax. No other change is seen. Dictated by: Dictated on workstation # [id number]
[2021-09-28] MEDS ORDERED: CEFEPIME INJECTION 1,000 MG in NS (IVPB) 50 ML IV ONE (22:00)
[2021-09-29] VITALS (7 sets, daily range): BP systolic 126–149; BP diastolic 67–81
[2021-09-29] MEDS ORDERED: GABAPENTIN 300 MG (NEURONTIN) CAP PO ONE
[2021-09-29] MEDS ORDERED: BENZONATATE 100 MG (TESSALON) CAPSULE PO ONE
[2021-09-29] MEDS ORDERED: fentaNYL INJ 100 MCG/2 ML AMP ONE (00:29)
[2021-09-29] MEDS ORDERED: fentaNYL INJ 100 MCG/2 ML AMP IVP PRN (00:30)
[2021-09-29] MEDS: fentaNYL INJ 100 MCG/2 ML AMP IVP PRN ×4 (03:01→22:38)
--- NOTE | 2021-09-29 04:28 | OPERATIVE REPORT ---
DATE OF SERVICE: 09/28/2021 PREOPERATIVE DIAGNOSIS: Pneumothorax. POSTOPERATIVE DIAGNOSIS: Pneumothorax. PROCEDURE: Thora-Vent insertion. SURGEON: Evans Gamez DO VP RHEUMATOLOGY: None. ANESTHESIA: Local lidocaine. BLOOD LOSS: Scant. FLUIDS: None. SPECIMENS: None, but guy off approximately 300 mL of air from the lung. INDICATION FOR PROCEDURE: The patient is a 76-year-old male with metastatic lung cancer. He has a pneumothorax. He had actually had this recently. He had a Thora-Vent placed, was in [facility] for 5 days and then 2 days ago they removed the Thoravent. Pt stated he was on his way home; after they discharged him today, when he started coughing and felt chest pain and shortness of breath. He had an x-ray that showed recurrence of the pneumothorax. FINDINGS: The patient had Thora-Vent placed right almost near the other spot they had previously placed and guy off about approximately 300 mL of air. PROCEDURE NOTE: After informed consent was obtained, the patient was in his bed in the ER, sterilely prepped and draped in normal fashion. Local lidocaine was used to infiltrate the skin as well as down towards the muscle basically just 2.5 cm medial to previous incision. Stab incision made with #11 blade and then advanced the Thora-Vent gently until I felt it going into the pleural cavity and then able to remove the trocar and advanced the catheter then hooked up the one-way valve and guy off about 300 mL of air until I was unable to draw off anymore. At this point, the patient did start having some pain, probably from the catheter. Breathing was a little bit better, but he states his pain he had differ with the first when he had no pain and this when he had pain. Pain was bad enough he said "if I had known it would hurt this time I might not have done it. Tolerated the procedure. The Thora-Vent was tapes down with a preplaced taped, already attached the Thora-Vent could see a little valve moving, so it was in the right place and a chest x-ray was ordered. Job ID: [id number] DocumentID: [id number] Dictated Date: 09/28/2021 20:55:33 Orthodontic Technician Date: 09/29/2021 04:28:05 Dictated By: EVANS GAMEZ DO CAYUGA MEDICAL CENTERFelicia
[2021-09-29 05:54] LABS: BASOPHILS % (AUTO) 1 % (0-10); EOSINOPHILS # (AUTO) 0.4 10^3/uL (0.0-0.3); EOSINOPHILS % (AUTO) 9 % (0-10); HEMATOCRIT 33 % (40-54); HEMOGLOBIN 10.8 g/dL (13.3-17.7); LYMPHOCYTES # (AUTO) 0.6 10^3/uL (1.0-4.0); LYMPHOCYTES % (AUTO) 14 % (12-44); MEAN CORPUSCULAR HEMOGLOBIN 27 pg (25-34); MEAN CORPUSCULAR HGB CONC 32 g/dL (32-36); MEAN CORPUSCULAR VOLUME 82 fL (80-99); MEAN PLATELET VOLUME 10.2 fL (9.0-12.2); MONOCYTES # (AUTO) 0.4 10^3/uL (0.0-1.0); MONOCYTES % (AUTO) 8 % (0-12); NEUTROPHILS # (AUTO) 3.2 10^3/uL (1.8-7.8); NEUTROPHILS % (AUTO) 68 % (42-75); PLATELET COUNT 232 10^3/uL (130-400); WHITE BLOOD COUNT 4.6 10^3/uL (4.3-11.0)
[2021-09-29 06:10] LABS: CALCIUM 8.6 MG/DL (8.5-10.1)
[2021-09-29 06:14] LABS: CREATININE SERUM 0.94 MG/DL (0.60-1.30)
[2021-09-29] MEDS: CATHETER FLUSH 10 ML SYR IVP SCH ×3 (06:50→20:07)
[2021-09-29] MEDS: CEFEPIME INJECTION 1,000 MG in NS (IVPB) 50 ML IV SCH ×4 (06:50→21:59)
--- NOTE | 2021-09-29 07:28 | Progress Note - Surgery ---
JOSE CLARK 09/29/21 0728: Subjective Date Seen by a Provider: Sep 29, 2021 Time Seen by a Provider: 07:19 Subjective/Events-last exam 76 YO male resting comfortably. Pt was at [facility] for a previous pneumothorax and had his Thoravent pulled two days ago. Yesterday on his way home from [facility] he developed had a cough and pain in his bladder prior to coming to the ED. He was found to have a recurrent pneumothorax in which Dr. Gamez placed a Thoravent last night. Pt states he is breathing better and has some pain surrounding the Thoravent that radiates between his shoulder blades. He has no fever, chills, N/V, shortness of breath or chest pain. States his suprapubic pain is better and he is urinating without difficulty. He was not hungry last night following the procedure, but states he is ready to eat this morning. He has a cough, but denies any other complaints at this time. Review of Systems General: No Chills, No Night Sweats HEENT: No Visual Changes Pulmonary: No Dyspnea; Cough, Other (pain surrounding thoravent) Cardiovascular: No: Chest Pain Gastrointestinal: No: Nausea, Vomiting, Abdominal Pain, Diarrhea Genitourinary: No Retention Neurological: No: Confusion Objective Exam Vital Signs Date Time Temp Pulse Resp B/P (MAP) Pulse Ox O2 Delivery O2 Flow Rate FiO2 09/29/21 07:08 91 Nasal Cannula 1.00 09/29/21 04:00 37.2 86 18 146/67 (93) 95 Nasal Cannula 1.50 09/29/21 02:23 95 Nasal Cannula 1.00 09/29/21 01:08 Nasal Cannula 1.50 09/29/21 01:00 90 09/29/21 00:00 36.9 98 18 134/81 (98) 98 Nasal Cannula 1.50 09/28/21 23:47 96 Nasal Cannula 1.00 09/28/21 23:00 92 22 153/90 94 09/28/21 17:38 37.8 91 24 156/81 (106) 94 I & O 09/29/21 07:00 Intake Total 100 ml Output Total 300 ml Balance -200 ml Capillary Refill : General Appearance: No Apparent Distress, WD/WN HEENT: Pharynx Normal, Moist Mucous Membranes Neck: Non Tender, Supple Respiratory: Lungs Clear, Normal Breath Sounds, No Accessory Muscle Use, No Respiratory Distress Cardiovascular: Regular Rate, Rhythm, No Gallop, No JVD, No Murmur Peripheral Pulses: 2+ Radial Pulses (R), 2+ Radial Pulses (L) Gastrointestinal: normal bowel sounds, non tender, soft, no organomegaly; No guarding, No rebound Extremity: No Calf Tenderness, No Pedal Edema Neurologic/Psychiatric: Alert, Oriented x3, Normal Mood/Affect Skin: Normal Color, Warm/Dry Lymphatic: No Adenopathy (supraclavicular ) Results Lab Laboratory Tests 09/28/21 17:14: Urine Color YELLOW, Urine Clarity CLEAR, Urine pH 5.0, Urine Specific [place] 1.010L, Urine Protein NEGATIVE, Urine Glucose (UA) NEGATIVE, Urine Ketones NEGATIVE, Urine Nitrite NEGATIVE, Urine Bilirubin NEGATIVE, Urine Urobilinogen 0.2, Urine Leukocyte Esterase 2+H, Urine RBC (Auto) NEGATIVE, Urine RBC NONE, Urine WBC 5-10H, Urine Squamous Epithelial Cells 2-5, Urine Crystals NONE, Urine Bacteria FEWH, Urine Casts NONE, Urine Mucus SMALLH, Urine Culture Indicated YES 09/28/21 17:53: White Blood Count 6.0, Red Blood Count 4.54, Hemoglobin 11.8L, Hematocrit 37L, Mean Corpuscular Volume 82, Mean Corpuscular Hemoglobin 26, Mean Corpuscular Hemoglobin Concent 32, Red Cell Distribution Width 15.6H, Platelet Count 244, Mean Platelet Volume 9.2, Immature Granulocyte % (Auto) 0, Neutrophils (%) (Auto) 69, Lymphocytes (%) (Auto) 14, Monocytes (%) (Auto) 7, Eosinophils (%) (Auto) 9, Basophils (%) (Auto) 1, Neutrophils # (Auto) 4.1, Lymphocytes # (Auto) 0.8L, Monocytes # (Auto) 0.4, Eosinophils # (Auto) 0.5H, Basophils # (Auto) 0.1, Immature Granulocyte # (Auto) 0.0, Sodium Level 139, Potassium Level 4.0, Chloride Level 105, Carbon Dioxide Level 25, Anion Gap 9, Blood Urea Nitrogen 21H, Creatinine 1.19, Estimat Glomerular Filtration Rate 63, BUN/Creatinine Ratio 18, Glucose Level 107H, Calcium Level 9.1, Corrected Calcium 9.4, Total Bilirubin 0.4, Aspartate Amino Transf (AST/SGOT) 16, Alanine Aminotransferase (ALT/SGPT) 16, Alkaline Phosphatase 94, Total Protein 6.4, Albumin 3.6 09/29/21 05:17: White Blood Count 4.6, Red Blood Count 4.08L, Hemoglobin 10.8L, Hematocrit 33L, Mean Corpuscular Volume 82, Mean Corpuscular Hemoglobin 27, Mean Corpuscular He moglobin Concent 32, Red Cell Distribution Width 15.4H, Platelet Count 232, Mean Platelet Volume 10.2, Immature Granulocyte % (Auto) 0, Neutrophils (%) (Auto) 68, Lymphocytes (%) (Auto) 14, Monocytes (%) (Auto) 8, Eosinophils (%) (Auto) 9, Basophils (%) (Auto) 1, Neutrophils # (Auto) 3.2, Lymphocytes # (Auto) 0.6L, Monocytes # (Auto) 0.4, Eosinophils # (Auto) 0.4H, Basophils # (Auto) 0.0, Immature Granulocyte # (Auto) 0.0, Sodium Level 140, Potassium Level 4.0, Chloride Level 108H, Carbon Dioxide Level 23, Anion Gap 9, Blood Urea Nitrogen 18, Creatinine 0.94, Estimat Glomerular Filtration Rate 84, BUN/Creatinine Ratio 19, Glucose Level 97, Calcium Level 8.6 Assessment/Plan Assessment/Plan Assessment/Plan Pneumothorax Metastatic Lung CA S/p Thoravent placement, pt tolerating with some pain surrounding the vent and between his shoulders. His abdominal/suprapubic pain has improved. He is urinating without difficulty. Continue monitoring pt vitals and medical management. EVANS GAMEZ DO 09/29/21 1120: Subjective Time Seen by a Provider: 09:37 Subjective/Events-last exam Pt seen and examined, states he is breathing ok but feels like he can't take deep breath. States that he felt stronger today and actually walked to bathroom by himself. Pain from thoravent is better than last night. Review of Systems General: No Chills, No Night Sweats HEENT: No Visual Changes Pulmonary: Dyspnea, Cough, Other (pain surrounding thoravent) Cardiovascular: No: Chest Pain Gastrointestinal: No: Nausea, Vomiting, Abdominal Pain Objective Exam General Appearance: Chronically ill, Mild Distress (secondary to pain and breathing) HEENT: Moist Mucous Membranes Respiratory: Lungs Clear, Normal Breath Sounds, No Accessory Muscle Use, No Respiratory Distress Cardiovascular: Regular Rate, Rhythm, No Murmur Gastrointestinal: No guarding, No rebound Neurologic/Psychiatric: Alert, Oriented x3 Assessment/Plan Assessment/Plan Assessment/Plan Pneumothorax Metastatic Lung CA S/p Thoravent placement, pt tolerating with some pain surrounding the vent and between his shoulders. His abdominal/suprapubic pain has improved. He is urinating without difficulty. Will order CXR to check PTX (thoravent valve is moving - which means may still have small leak). RT consult ordered with request for breathing treatment recommendations. Continue monitoring pt vitals and will try off O2. Restarted Gabapentin and tessalon pearls. Supervisory-Addendum Brief Verification & Attestation Participated in pt care: history, MDM, physical Personally performed: exam, history, MDM, supervision of care Care discussed with: Medical Student Procedures: n/a Verification and Attestation of Medical Student E/M Service A medical student performed and documented this service. I then reviewed and verified all information documented by the medical student and made modifications to such information, when appropriate. I personally performed a physical exam, medical decision making and then discussed any differences between the notes and made revisions as necessary to create one note. Evans Gamez , 09/29/21 , 11:20 JOSE CLARK Sep 29, 2021 07:28 EVANS GAMEZ DO Sep 29, 2021 11:20
[2021-09-29] MEDS: BENZONATATE 100 MG (TESSALON) CAPSULE PO SCH ×3 (08:25→20:06)
[2021-09-29] MEDS ORDERED: CEFD300C3 PO (11:22)
--- NOTE | 2021-09-29 11:53 | Consultation ---
PHILLIP BAUTISTA 09/29/21 1153: HPI History of Present Illness: HPI/Chief Complaint 76 M with hx of stage 4 lung cancer is on day 2 of admission for Lt pneumothorax accompanied by abdominal and suprapubic pain. Thoravent was placed last night by Dr. Gamez and released 300ml of air. RT to consult today about home O2 and breathing treatments. Pt claims abd pain has subsided and no troubles voiding or BMs. Pt denies any fever/chills, N/V, CP or palpitations. Pt does have a cough that couses him discomfort and SOB. UA shows trace amounts of bacteria present and started on IV ABx. Transitioned to oral abx upon DC. Source: patient Exam Limitations: no limitations Date Seen 09/29/21 Attending Physician Oleksandr Monson MD PCP Admitting Physician: Evans Gamez DO Attending Physician: Evans Gamez DO Referring Physician Date of Admission Sep 28, 2021 at 19:00 Home Medications & Allergies Home Medications Reviewed patient Home Medication Reconciliation performed by pharmacy medication reconciliations senior maintenance technician and/or nursing. Patients Allergies have been reviewed. Allergies Allergies Coded Allergies No Known Drug Intolerances (Verified Allergy, Unknown, 09/23/21) Past Bpnurgd-Onntkc-[id number] Hx Patient Social History Tobacco Use?: No Smoking Status: Former Smoker Use of E-Cig and/or Vaping dev: No Substance use?: No Alcohol Use?: No Pt feels they are or have been: No Current Status Advance Directives: Yes Advance Directive Location: Copy from prev record Communicates: Verbally Primary Language: Australian Preferred Spoken Language: Australian Is interpretation needed?: No Implanted or Applied Medical D: None Past Medical History Surgeries: Amputation, Gallbladder COPD Cardiomyopathy Amputee Bone, Lung Family Medical History No Pertinent Family Hx Review of Systems Constitutional: No chills, No diaphoresis, No fever EENTM: no symptoms reported Respiratory: cough, dyspnea on exertion, short of breath, wheezing Cardiovascular: No chest pain, No edema, No palpitations Gastrointestinal: No abdominal pain, No constipation, No diarrhea, No dysphagia Genitourinary: No discharge, No frequency; other (variable voiding ability) Musculoskeletal: No joint pain, No muscle pain, No muscle stiffness Skin: No change in color, No change in hair/nails, No lesions, No lumps Psychiatric/Neurological: No Symptoms Reported Physical Exam Physical Exam Vital Signs Vital Signs - First Documented 09/28/21 09/28/21 17:38 23:47 Temp 37.8 Pulse 91 Resp 24 B/P (MAP) 156/81 (106) Pulse Ox 94 O2 Delivery Nasal Cannula O2 Flow Rate 1.00 Capillary Refill : Height, Weight, BMI Height: '" Weight: lbs. oz. kg; 27.30 BMI Method: General Appearance: Chronically ill, Mild Distress (secondary to pain and breathing) HEENT: Moist Mucous Membranes Neck: Non Tender, Supple Respiratory: Lungs Clear, Normal Breath Sounds, No Accessory Muscle Use, No Respiratory Distress Cardiovascular: Regular Rate, Rhythm, No Murmur Gastrointestinal: Normal Bowel Sounds, No Organomegaly, No Pulsatile Mass, Non Tender, Soft Extremity: Normal Capillary Refill, Normal Inspection, No Calf Tenderness, No Pedal Edema Neurologic/Psychiatric: Alert, Oriented x3 Skin: Normal Color, Warm/Dry Lymphatic: No Adenopathy (supraclavicular ) Results Results/Procedures Labs Laboratory Tests 09/28/21 17:53 09/29/21 05:17 Patient resulted labs reviewed. Assessment/Plan Assessment and Plan Assess & Plan/Chief Complaint 1)UTI * continue IV cefepime and tranistion to omnicef upon DC * monitor for incontinence * continue oral fluids * F/u if unable to void or if pain returns 2) Pneumothorax * RT for home O2 * breathing treatments with spirometer TESS HUYNH DO 09/29/21 2104: HPI History of Present Illness: HPI/Chief Complaint CC: Left sided pneumothorax HPI: This is a 76 yr old male clinic pt of Dr. Monson changing to Dr. Perdomo in [place]. He has a past medical history of lung cancer. He was just discharged from . He became SOB and was found to have a left sided pneumothorax. Thoravent was placed by Dr. Gamez. He was also found to have an early UTI. Cefepime was initiated due to 1 week of history up at . We will continue that from the Cefepime into the Omnicef 300 mg BID to [address] [place] [address] pharmacy. Oxygen evaluation was completed and will arrange for oxygen as a supplement at discharge. Source: patient Exam Limitations: no limitations Past Oqjdfzm-Xsbelk-Ptwwfm Hx Patient Social History Marrital Status: Employed/Student: retired Past Medical History COPD Lung Review of Systems Constitutional: see HPI Physical Exam Physical Exam General Appearance: Anxious, Chronically ill, Thin Respiratory: No Accessory Muscle Use, No Respiratory Distress, Decreased Breath Sounds Cardiovascular: Regular Rate, Rhythm Neurologic/Psychiatric: Alert, Oriented x3 Assessment/Plan Assessment and Plan Assess & Plan/Chief Complaint Assessment: Left PTX UTI Cancer Plan: O2 Thoravent Abx Supervisory-Addendum Brief Verification & Attestation Participated in pt care: history, MDM, physical Personally performed: exam, history, MDM, supervision of care Care discussed with: Medical Student Procedures: n/a Results interpretation: Verified all documentation Verification and Attestation of Medical Student E/M Service A medical student performed and documented this service in my presence. I reviewed and verified all information documented by the medical student and made modifications to such information, when appropriate. I personally performed the physical exam and medical decision making. Tess Huynh, Sep 29, 2021,21:03 PHILLIP BAUTISTA Sep 29, 2021 11:53 TESS HUYNH DO Sep 29, 2021 21:04
--- NOTE | 2021-09-29 13:37 | Diagnostic Imaging Report ---
EXAMINATION: Chest, one view. HISTORY: Follow-up pneumothorax. COMPARISON: Chest radiograph on 09/28/2021. FINDINGS: Small-bore chest tube is again visualized overlying the left upper chest. There has been interval increase in size in the left-sided pneumothorax now measuring 4.9 cm from the lung apex. Improved aeration is seen in the right lung base. Stable cardiac silhouette. IMPRESSION: 1. Interval increase in size in a [id number] left-sided pneumothorax. The chest tube remains in place. 2. Improved aeration in the right lung base. Dictated by: Dictated on workstation # [id number]
--- NOTE | 2021-09-29 14:29 | Diagnostic Imaging Report ---
EXAMINATION: Chest 1 view HISTORY: Follow-up pneumothorax. COMPARISON: Chest radiograph performed earlier the same date. FINDINGS: Interval decrease in size in a small left-sided pneumothorax with stable left-sided chest tube. The pneumothorax now measures 1.2 cm from the apex. Stable right basilar opacities. IMPRESSION: 1. Interval decrease in size in the small left-sided pneumothorax with stable configuration of the left-sided chest tube. Dictated by: Dictated on workstation # [id number]
[2021-09-29] MEDS ORDERED: polyethylene glycoL POWDER 17 GM (MIRALAX) PACK PO NR (14:30)
[2021-09-29] MEDS ORDERED: METO-333 PO (15:05)
[2021-09-29] MEDS ORDERED: OMEP20CA18 PO (15:05)
[2021-09-29] MEDS ORDERED: BENZ-36 PO (15:05)
[2021-09-29] MEDS ORDERED: POLY17PO6 PO (15:05)
[2021-09-29] MEDS ORDERED: DIAZ5TAB49 PO (15:05)
[2021-09-29] MEDS ORDERED: SENN-273 PO (15:05)
[2021-09-29] MEDS ORDERED: GUAI600T43 PO (15:05)
[2021-09-29] MEDS ORDERED: ACET325C7 PO (15:05)
[2021-09-29] MEDS ORDERED: GABA300C PO (15:45)
[2021-09-29] MEDS ORDERED: polyethylene glycoL POWDER 17 GM (MIRALAX) PACK PO SCH (21:00)
[2021-09-30] MEDS: fentaNYL INJ 100 MCG/2 ML AMP IVP PRN ×4 (00:43→14:18)
[2021-09-30 03:41] VITALS: BP 136/74
[2021-09-30] MEDS: CEFEPIME INJECTION 1,000 MG in NS (IVPB) 50 ML IV SCH ×3 (04:31→16:21)
[2021-09-30] MEDS: CATHETER FLUSH 10 ML SYR IVP SCH ×2 (04:32→14:11)
--- NOTE | 2021-09-30 08:00 | Progress Note - Surgery ---
JOSE CLARK 09/30/21 0800: Subjective Date Seen by a Provider: Sep 30, 2021 Time Seen by a Provider: 07:54 Subjective/Events-last exam Pt sitting in chair resting comfortably. States he slept well, tolerating his diet, and urinating without difficulty. States his breathing feels the same since 600 ml of air was taken off from the Thoravent yesterday afternoon. Notes the pain around the Thoravent has improved. States he is still coughing and feels like he just can't take a full deep breath. Notes the tessalon pearls help some with the cough. He has some abdominal cramping, but denies fever, chills, N/V/D, dysuria, chest pain or any other complaints at this time. Review of Systems General: No Chills, No Night Sweats HEENT: No Visual Changes Pulmonary: Cough, Other (feels like he can't take a deep breath.) Cardiovascular: No: Chest Pain Gastrointestinal: No: Nausea, Vomiting, Abdominal Pain Genitourinary: No Dysuria, No Incontinence, No Retention Objective Exam Vital Signs Date Time Temp Pulse Resp B/P (MAP) Pulse Ox O2 Delivery O2 Flow Rate FiO2 09/30/21 07:40 90 Room Air 09/30/21 07:00 102 09/30/21 03:41 36.7 84 20 136/74 (94) 98 Nasal Cannula 2.00 09/30/21 03:05 98 Nasal Cannula 2.00 09/30/21 01:00 82 09/29/21 23:10 37.0 95 20 149/76 (100) 93 Nasal Cannula 2.00 09/29/21 20:05 94 Nasal Cannula 1.00 09/29/21 19:32 37.3 93 18 133/78 (96) 98 Nasal Cannula 2.00 09/29/21 19:10 99 Nasal Cannula 2.00 09/29/21 19:00 92 09/29/21 15:50 37.2 98 16 126/76 (93) 99 Nasal Cannula 1.50 09/29/21 15:10 99 Nasal Cannula 2.00 09/29/21 12:56 37.1 82 20 137/78 (97) 94 Nasal Cannula 1.50 09/29/21 12:37 105 09/29/21 08:04 37.2 84 18 148/76 (100) 94 Nasal Cannula 1.50 09/29/21 08:00 94 Nasal Cannula 1.00 I & O 09/30/21 07:00 Intake Total 1060 ml Balance 1060 ml Capillary Refill : General Appearance: No Apparent Distress, Chronically ill, Thin HEENT: PERRL/EOMI, Moist Mucous Membranes Neck: Non Tender, Supple Respiratory: No Accessory Muscle Use, No Respiratory Distress, Decreased Breath Sounds, Expiration, Inspiration, Wheezing (audible inspiratory and expiratory wheezing, louder on the right than the left. ), Other (Thoravent in place with some serosanguinous fluid. ) Cardiovascular: Regular Rate, Rhythm, No Gallop, No Murmur Peripheral Pulses: 2+ Radial Pulses (L) Gastrointestinal: normal bowel sounds, non tender, soft, no organomegaly Extremity: Normal Capillary Refill, Normal Inspection, No Calf Tenderness, No Pedal Edema, Other (Right wrist amputee. ) Neurologic/Psychiatric: Alert, Oriented x3 Skin: Normal Color, Warm/Dry Lymphatic: No Adenopathy (supraclavicular ) Results Lab Microbiology 09/28/21 Urine Culture - Final, Complete Gram Pos Mixed Bacterial Kassie Assessment/Plan Assessment/Plan Assessment/Plan Pneumothorax Metastatic Lung CA S/p Thoravent placement, pt tolerating with some pain surrounding the vent and between his shoulders. His abdominal/suprapubic pain has improved. He is urinating without difficulty. Removed 600 ml of air yesterday. There is some serousanguineous drainage in the thoravent. Continue breathing treatment recommendations. Continue monitoring pt vitals and will try off O2. Restarted Gabapentin and tessalon pearls. EVANS GAMEZ DO 09/30/21 1110: Subjective Time Seen by a Provider: 10:22 Subjective/Events-last exam Pt seen and examined, sitting in chair comfortably. Still has some trouble taking deep breaths and very minimal abdominal pain. Review of Systems General: No Chills, No Night Sweats Pulmonary: Cough, Other (feels like he can't take a deep breath.) Cardiovascular: No: Chest Pain Gastrointestinal: No: Nausea, Vomiting, Abdominal Pain Genitourinary: No Dysuria Objective Exam General Appearance: No Apparent Distress, Chronically ill, Thin HEENT: PERRL/EOMI, Moist Mucous Membranes Respiratory: No Accessory Muscle Use, No Respiratory Distress, Decreased Breath Sounds, Expiration, Inspiration, Wheezing (audible inspiratory and expiratory wheezing, louder on the right than the left. ), Other (Thoravent in place with some serosanguinous fluid. ) Cardiovascular: Regular Rate, Rhythm, No Murmur Gastrointestinal: non tender, soft, no organomegaly Extremity: Other (Right wrist amputee. ) Assessment/Plan Assessment/Plan Assessment/Plan Pneumothorax Metastatic Lung CA S/p Thoravent placement, pt tolerating with some pain surrounding the vent and between his shoulders. Valve on thoravent is not moving. His abdominal/suprapubic pain has improved. He is urinating without difficulty. Removed 600 ml of air yesterday. There is some serousanguineous drainage in the thoravent. Continue breathing treatment recommendations. Continue monitoring pt vitals and will try off O2. Restarted Gabapentin and tessalon pearls. Supervisory-Addendum Brief Verification & Attestation Participated in pt care: history, MDM, physical Personally performed: exam, history, MDM, supervision of care Care discussed with: Medical Student Procedures: n/a Verification and Attestation of Medical Student E/M Service A medical student performed and documented this service. I then reviewed and verified all information documented by the medical student and made modifications to such information, when appropriate. I personally performed a physical exam, medical decision making and then discussed any differences between the notes and made revisions as necessary to create one note. Evans Gamez , 09/30/21 , 11:11 JOSE CLARK Sep 30, 2021 08:00 EVANS GAMEZ DO Sep 30, 2021 11:10
[2021-09-30 08:03] VITALS: BP 139/74
[2021-09-30] MEDS: BENZONATATE 100 MG (TESSALON) CAPSULE PO SCH ×2 (08:48→14:11)
[2021-09-30] MEDS ORDERED: guaiFENesin (MUCINEX) 600 MG TAB PO ONE (10:30)
[2021-09-30 11:36] VITALS: BP 137/73
--- NOTE | 2021-09-30 13:01 | Progress Note ---
PHILLIP BAUTISTA 09/30/21 1301: Subjective Date Seen by a Provider: Sep 30, 2021 Time Seen by a Provider: 10:20 Subjective/Events-last exam 76 M with hx of stage 4 lung cancer is on day 3 of admission for Lt pneumothorax accompanied by abdominal and suprapubic pain. Pt had Lt lung collapse yesterday 09/29 and 600ml of air drained from Thoravent. Pt claims abd and suprapubic pain has diminished. Voiding with no issues. Started mucinex today to increase resp fxn. Home 2L O2 in place. Plans to DC today post chest x-ray. Starting on omnicef for outpt abx. Review of Systems General: No Chills, No Night Sweats HEENT: No Head Aches, No Dysphasia Pulmonary: Dyspnea, Cough Cardiovascular: Chest Pain (superficial around thoravent ); No: Palpitations Gastrointestinal: No: Nausea, Vomiting, Abdominal Pain, Constipation Genitourinary: No Dysuria, No Frequency, No Incontinence Musculoskeletal: back pain Neurological: No: Weakness, Numbness, Change in speech Objective Exam Last Set of Vital Signs Vital Signs Date Time Temp Pulse Resp B/P (MAP) Pulse Ox O2 Delivery O2 Flow Rate FiO2 09/30/21 11:36 37.8 83 19 137/73 (94) 92 Nasal Cannula 2.00 Capillary Refill : I&O Intake and Output 09/30/21 00:00 Intake Total 860 ml Output Total 300 ml Balance 560 ml Intake Oral 860 ml Output Urine Total 300 ml # Voids 7 # Bowel Movements 1 General: Alert, Oriented X3, Cooperative HEENT: Atraumatic, EOMI Neck: Supple, No JVD Lungs: Other (Crackles and wheezing on inspiration and expiration) Heart: Regular Rate, No Murmurs Abdomen: Normal Bowel Sounds, Soft, No Tenderness Extremities: No Edema, Normal Pulses Skin: No Rashes, No Significant Lesion Neuro: Normal Speech, Normal Tone, Sensation Intact Psych/Mental Status: Mental Status NL, Mood NL Results Lab Microbiology 09/28/21 Urine Culture - Final, Complete Gram Pos Mixed Bacterial Kassie Assessment/Plan Assessment/Plan Assess & Plan/Chief Complaint 1)UTI * continue abx therapy with omnicef 2)Pneumothorax * continue thoravent per surg * prn mucinex * continue at home O2 TESS HERRERA DO 09/30/212127: Subjective Subjective/Events-last exam Patient doing well Thora vent in place Review of Systems General: Fatigue Pulmonary: Dyspnea Supervisory-Addendum Brief Verification & Attestation Participated in pt care: history, MDM, physical Personally performed: exam, history, MDM, supervision of care Care discussed with: Medical Student Procedures: n/a Results interpretation: Verified all documentation Verification and Attestation of Medical Student E/M Service A medical student performed and documented this service in my presence. I reviewed and verified all information documented by the medical student and made modifications to such information, when appropriate. I personally performed the physical exam and medical decision making. Tess Herrera, Sep 30, 2021,21:28 PHILLIP BAUTISTA Sep 30, 2021 13:01 TESS HERRERA DO Sep 30, 2021 21:28
--- NOTE | 2021-09-30 13:09 | Diagnostic Imaging Report ---
INDICATION: Pneumothorax. TIME OF EXAM: 10:55 a.m. COMPARISON: Correlation is made with prior study one day earlier. FINDINGS: Left chest Thora-Vent is again noted. The orientation of the catheter has changed since yesterday and is now directed laterally to the left. It is difficult to determine on this single radiograph if the Thora-Vent remains intrathoracic. There does appear to be a tiny left apical pneumothorax, similar to yesterday. A small amount of subcutaneous gas along the left chest wall is noted. There is some atelectasis in the right lung base. IMPRESSION: Tiny left apical pneumothorax, stable. Orientation of the left Thora-Vent has changed since yesterday. Dictated by: Dictated on workstation # [id number]
[2021-09-30 15:13] VITALS: BP 136/71
--- NOTE | 2021-09-30 15:54 | Discharge Inst-Surgical ---
Discharge Inst-Surgical Depart Medication/Instructions New, Converted or Re-Newed RX: Other (use home meds) Patient Instructions Follow up Appt: Make appointment for 1 week. [phone] Instructions: No showers or tub bath or soaking. Sponge bath only. Use incentive spirometer at home as directed. No Smoking Skin/Wound Care: Leave Thoravent alone, will get removed in office. Symptoms to Report: Appetite Changes, Extremity Discoloration, Numbness/Tingling, Swelling Increased, Bleeding Excessive, Eyesight Changes, Pain Increased, Urine Color Change, Constipation(Persistent), Fever over 101 degree F, Pain/Pressure in chest, Urinating Difficulty, Cough Up/Vomit Blood, Heart Beat Irreg/Pounding, Pain/Pressure in jaw, Cramps in feet or legs, Lightheadedness, Pain/Pressure in shoulder, Diarrhea(Persistent), Memory Changes Suddenly, Questions/Concerns, Weight gain consecutive days, Dizziness/Fainting, Nausea/Vomiting, Shortness of Breath, Weight gain over 2 pounds If questions or concerns contact your physician Or seek help at emergency department. Activity Activity as Tolerated: Yes Driving Instructions: You May Drive Diet Discharge Diet: No Restrictions Diet After 24 Hours: Clear Liquid if Nauseous If Any Problems/Questions/Issu: Contact Your Physician, Go to Emergency Room Skin/Wound Care Infection Signs and Symptoms: Increased Redness, Foul Odor of Wound, Increased Drainage, Skin Itchy or Has a Rash, Increased Swelling, Temperature Above 101 F Bathing Instructions: DEAN Kumar DO Sep 30, 2021 15:54
--- NOTE | 2021-09-30 16:19 | D/C HH Face to Face Order ---
D/C Face to Face Orders Instructions for Patient Via [facility], Patient Instructions/FollowUp: F/U one week Physician to follow Patient: Vera Discharge Diet for Home: No Restrictions Patient Problems: Pneumothorax, Stage IV Lung CA Patient Data-Allergies,Ht & Wt Patient Allergies: Coded Allergies: No Known Drug Intolerances (Verified Allergy, Unknown, 09/23/21) Home Health Need/Face to Face Date of Face to Face: Sep 30, 2021 Clinical Findings: Generalized weakness and fatigue, Immune-compromised, Muscle weakness, Shortness of breath, Other-list in note I have seen Pt [id number]: Yes Discharged To: Home Diagnosis/Conditions: Pneumothorax Stage IV Lung CA Patient is Homebound due to: Muscle weakness, Shortness of breath/distress Homebound Status Due to the above stated illness, injury or surgical procedure (medical condition or diagnosis) and associated clinical findings, the patient is homebound because of his/her inability to leave home except with aid of a supportive device and/or person AND leaving the home requires a considerable and taxing effort or is medically contraindicated. Pt req the following assistanc: [facility] Nursing Orders Home Health Services Order: Nursing Services, Physical Therapy-Evaluate & Treat Therapy Orders Therapy Orders: Physical Therapy Therapy Specific Orders: Eval assistive deivces, Gait training, Increase strength/endurance Cert[facility] certify that this patient is under my care and that I, a nurse practitioner or a physician; a sales assistant displays working with me, had a face to face encounter that - meets the physician face to face encounter requirements with this patient as dated. DEAN SCHMIDT DO Sep 30, 2021 16:19
[2021-09-30] MEDS ORDERED: DIAZEPAM 5 MG (VALIUM) TABLET PO PRN (16:45)
[2021-09-30] MEDS ORDERED: GABAPENTIN 300 MG (NEURONTIN) CAP PO PRN (16:45)
[2021-09-30] MEDS ORDERED: BENZONATATE 100 MG (TESSALON) CAPSULE PO PRN (16:45)
[2021-09-30 17:27] VITALS: BP 136/71
[2021-09-30] MEDS ORDERED: guaiFENesin (MUCINEX) 600 MG TAB PO SCH ×2 (21:00)
[2021-09-30] MEDS ORDERED: SENNA W/DOCUSATE (SENOKOT S) TABLET PO SCH (21:00)
[2021-09-30] MEDS ORDERED: meTOprolol TARTRATE 25 MG (LOPRESSOR) TABLET PO SCH (21:00)
[2021-10-01] MEDS ORDERED: OMEPRAZOLE 20 MG (PriLOSEC) CAP NON-FORMULARY PO SCH (09:00)
[2021-10-01] MEDS ORDERED: polyethylene glycoL POWDER 17 GM (MIRALAX) PACK PO SCH (09:00)
[2021-10-01] MEDS ORDERED: PANTOPRAZOLE 20 MG TABLET (PROTONIX) PO SCH (09:00)
== END 2021-09-30 15:50 | disposition home health service (06) ==
LOC: EDUNIT# 17:05 → ER 17:07 → 4TH 19:00 → UNDOADMOB 19:00 → 4TH 23:39 → UNDODISOB 09-30 17:15
PROVIDERS: ADMIT Surgery; ATTEND Surgery
DX: J93.9 Pneumothorax, unspecified (principal); C78.00 Secondary malignant neoplasm of unspecified lung; N39.0 Urinary tract infection, site not specified; Z87.891 Personal history of nicotine dependence
CPT/HCPCS: 36415; 71045; 74176; 80048; 80053; 81000; 85025; 87088; 94760; 94761; 96366; 96375; 96376; G0378

== ENCOUNTER 2021-10-04 06:05 | Emergency (ER) | payer MEDICARE ==
[~2021-10-04] VITALS: Ht 175.3 cm; Wt 83.9 kg
[~2021-10-04 06:05] MED LIST: ACET325C7 PO; BENZ-36 PO; CEFD300C3 PO; DIAZ5TAB49 PO; GABA300C PO; GUAI600T43 PO; METO-333 PO; OMEP20CA18 PO; POLY17PO6 PO; SENN-273 PO
--- NOTE | 2021-10-04 06:28 | ED Chest Pain ---
General Chief Complaint: Chest Pain Stated Complaint: CP Source: patient Exam Limitations: no limitations History of Present Illness Date Seen by Provider: Oct 04, 2021 Time Seen by Provider: 06:08 Initial Comments Patient to the ER by EMS from home with chief complaint of chest pain, across his chest right to left and radiating through to his back. That is starting about an hour and a half ago lasted for a little less than an hour and seems to be gone now. He did not receive anything on route other than an IV. He is on Eliquis with a history of atrial fibrillation. He denies a history of coronary disease. He does have a history of lung cancer. He also has a pneumothorax related to said lung cancer on the left side and had a Thora vent placed by Dr. Gamez on , last week. He is not having a productive cough. He is on his baseline 2 L of oxygen by nasal cannula. He quit smoking many decades ago. He says he used to be on medicines for blood pressure before losing a lot of weight in the last 2 years from cancer. He is followed by a oncologist in and on monoclonal antibody infusions. He denies surgery or radiation therapy. He denies history of hyperlipidemia or diabetes. No significant family medical history. He has a history of kidney stones and surgical resection of the prostate. Follows with urology at . Allergies and Home Medications Allergies Coded Allergies: No Known Drug Intolerances (Verified Allergy, Unknown, 09/23/21) Patient Home Medication List Home Medication List Reviewed: Yes Acetaminophen (Tylenol) 325 Mg Capsule, 325 MG PO Q4H PRN for PAIN-MILD (1-4), (Reported) Entered as Reported by: WEST WALKER on 09/29/21 1505 Benzonatate (Benzonatate) 100 Mg Capsule, 100 MG PO TID PRN for COUGH, (Reported) Entered as Reported by: WEST WALKER on 09/29/21 1505 Cefdinir (Cefdinir) 300 Mg Capsule, 300 MG PO BID Prescribed by: MATILDE HUYNH on 09/29/21 1122 Diazepam (Diazepam) 5 Mg Tablet, 5 MG PO Q6H PRN for ANXIETY, (Reported) Entered as Reported by: WEST WALKER on 09/29/21 1505 Gabapentin (Neurontin) 300 Mg Capsule, 300 MG PO TID PRN for PAIN-BREAKTHROUGH, (Reported) Entered as Reported by: WEST WALKER on 09/29/21 1545 Guaifenesin (Mucinex) 600 Mg Tab.er.12h, 600 MG PO BID, (Reported) Entered as Reported by: WEST WALKER on 09/29/21 1505 Metoprolol Tartrate (Metoprolol Tartrate) 25 Mg Tablet, 25 MG PO BID, (Reported) Entered as Reported by: WEST WALKER on 09/29/21 1505 Omeprazole (Omeprazole) 20 Mg Capsule.dr, 20 MG PO DAILY, (Reported) Entered as Reported by: WEST WALKER on 09/29/21 1505 Polyethylene Glycol 3350 (Miralax) 17 Gram Powd.pack, 17 GM PO DAILY, (Reported) Entered as Reported by: WEST WALKER on 09/29/21 1505 Sennosides/Docusate Sodium (Senna-S 8.6-50 mg Tablet) 8.6 Mg-50 Mg Tablet, 2 EACH PO BID, (Reported) Entered as Reported by: WEST WALKER on 09/29/21 1505 Tamsulosin HCl (Flomax) 0.4 Mg Cap, 0.4 MG PO HS Prescribed by: VIC FLORES on 10/04/21 1156 Review of Systems Review of Systems Constitutional: chills, diaphoresis EENTM: Blurred Vision, Double Vision Respiratory: See HPI; Denies Cough, Denies Shortness of Air Cardiovascular: See HPI, Chest Pain; Denies Lightheadedness Gastrointestinal: Denies Constipated, Denies Diarrhea, Denies Nausea Genitourinary: Denies Burning, Denies Discharge Musculoskeletal: No back pain, No joint pain All Other Systems Reviewed Negative Unless Noted: Yes Past Pimneri-Qkqu[place]-Kslvfd Hx Patient Social History Tobacco Use?: No Use of E-Cig and/or Vaping dev: No Substance use?: No Past Medical History Surgeries: Yes Amputation, Gallbladder Respiratory: Yes (Pneumothorax, Stage IV Lung CA) COPD Cardiac: Yes Cardiomyopathy Musculoskeletal: Yes 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 oz. kg; 27.30 BMI Method: General Appearance: No Apparent Distress, WD/WN HEENT: PERRL/EOMI, TMs Normal, Normal ENT Inspection, Pharynx Normal, Moist Mucous Membranes Neck: Full Range of Motion, Normal Inspection, Non Tender, Supple Respiratory: No Accessory Muscle Use, No Respiratory Distress; No Rales; Rhonci (Bilateral) Cardiovascular: Regular Rate, Rhythm, No Edema, Normal Peripheral Pulses Gastrointestinal: Normal Bowel Sounds, Non Tender, Soft Extremity: Normal Capillary Refill, Normal Range of Motion, No Pedal Edema, Other Neurologic/Psychiatric: Alert, Oriented x3, No Motor/Sensory Deficits Skin: Normal Color, Warm/Dry Progress/Results/Core Measures Results/Orders Lab Results Laboratory Tests Test 10/04/21 06:24 10/04/21 06:39 10/04/21 09:30 Range/Units White Blood Count 5.8 4.3-11.0 10^3/uL Red Blood Count 4.61 4.30-5.52 10^6/uL Hemoglobin 12.0 L 13.3-17.7 g/dL Hematocrit 37 L 40-54 % Mean Corpuscular Volume 81 80-99 fL Mean Corpuscular Hemoglobin 26 25-34 pg Mean Corpuscular Hemoglobin Concent 32 32-36 g/dL Red Cell Distribution Width 15.0 H 10.0-14.5 % Platelet Count 266 130-400 10^3/uL Mean Platelet Volume 9.6 9.0-12.2 fL Immature Granulocyte % (Auto) 0 % Neutrophils (%) (Auto) 70 42-75 % Lymphocytes (%) (Auto) 14 12-44 % Monocytes (%) (Auto) 8 0-12 % Eosinophils (%) (Auto) 7 0-10 % Basophils (%) (Auto) 1 0-10 % Neutrophils # (Auto) 4.0 1.8-7.8 10^3/uL Lymphocytes # (Auto) 0.8 L 1.0-4.0 10^3/uL Monocytes # (Auto) 0.5 0.0-1.0 10^3/uL Eosinophils # (Auto) 0.4 H 0.0-0.3 10^3/uL Basophils # (Auto) 0.0 0.0-0.1 10^3/uL Immature Granulocyte # (Auto) 0.0 0.0-0.1 10^3/uL Prothrombin Time 16.3 H 12.2-14.7 SEC INR Comment 1.3 0.8-1.4 Activated Partial Thromboplast Time 31 24-35 SEC D-Dimer 1.62 H 0.00-0.49 UG/ML Sodium Level 139 135-145 MMOL/L Potassium Level 3.9 3.6-5.0 MMOL/L Chloride Level 107 98-107 MMOL/L Carbon Dioxide Level 21 21-32 MMOL/L Anion Gap 11 5-14 MMOL/L Blood Urea Nitrogen 15 7-18 MG/DL Creatinine 1.02 0.60-1.30 MG/DL Estimat Glomerular Filtration Rate 76 BUN/Creatinine Ratio 15 Glucose Level 100 70-105 MG/DL Calcium Level 8.9 8.5-10.1 MG/DL Corrected Calcium 9.4 8.5-10.1 MG/DL Magnesium Level 1.8 1.6-2.4 MG/DL Total Bilirubin 0.5 0.1-1.0 MG/DL Aspartate Amino Transf (AST/SGOT) 16 5-34 U/L Alanine Aminotransferase (ALT/SGPT) 16 0-55 U/L Alkaline Phosphatase 91 40-136 U/L Myoglobin 70.8 10.0-92.0 NG/ML Troponin I < 0.028 < 0.028 <0.028 NG/ML C-Reactive Protein High Sensitivity 2.05 H 0.00-0.50 MG/DL B-Type Natriuretic Peptide 40.8 <100.0 PG/ML Total Protein 5.8 L 6.4-8.2 GM/DL Albumin 3.4 3.2-4.5 GM/DL Lipase 24 8-78 U/L Influenza Type A (RT-PCR) Not Detected Not Detecte Influenza Type B (RT-PCR) Not Detected Not Detecte SARS-CoV-2 RNA (RT-PCR) Not Detected Not Detecte My Orders Orders - JUANVIC J Ekg Tracing (10/04/21 06:16) Cbc With Automated Diff (10/04/21 06:20) Magnesium (10/04/21 06:20) Chest 1 View, Ap/Pa Only (10/04/21 06:20) Comprehensive Metabolic Panel (10/04/21 06:20) Myoglobin Serum (10/04/21 06:20) Protime With Inr (10/04/21 06:20) Partial Thromboplastin Time (10/04/21 06:20) O2 (10/04/21 06:20) Monitor-Rhythm Ecg Trace Only (10/04/21 06:20) Ed Iv/Invasive Line Start (10/04/21 06:20) Bnp [place] (10/04/21 06:20) Fibrin Degradation Products (10/04/21 06:20) Troponin I [place] (10/04/21 06:20) Aspirin Chewable Tablet (Baby Aspirin Ch (10/04/21 06:30) Covid 19 Inhouse Test (10/04/21 06:35) Influenza A And B By Pcr (10/04/21 06:35) Lipase (10/04/21 06:35) Hs C Reactive Protein (10/04/21 06:35) Nitroglycerin 0.4 Mg Btl 25's (Nitrostat (10/04/21 07:00) Troponin I Flo (10/04/21 09:30) Bladder Scan (10/04/21 09:57) Lidocaine 1% Inj 20 Ml (Xylocaine 1% Inj (10/04/21 10:15) Chest 1 View, Ap/Pa Only (10/04/21 10:26) Tamsulosin Capsule (Flomax Capsule) (10/04/21 11:45) Medications Given in ED Current Medications Medications Dose Ordered Sig/Shane Route Start Time Stop Time Status Last Admin Dose Admin Aspirin 324 mg ONCE ONCE PO 10/04/21 06:30 10/04/21 06:31 DC 10/04/21 06:41 324 MG Lidocaine HCl 20 ml STK-MED ONCE .ROUTE 10/04/21 10:15 10/04/21 10:18 DC 10/04/21 10:18 20 ML Tamsulosin HCl 0.4 mg ONCE ONCE PO 10/04/21 11:45 10/04/21 11:46 DC 10/04/21 12:28 0.4 MG Vital Signs/I&O 10/04/21 10/04/21 10/04/21 06:06 06:06 13:08 Temp 36.8 36.8 Pulse 96 115 Resp 24 24 B/P (MAP) 143/91 (108) 111/75 Pulse Ox 97 97 96 O2 Delivery Nasal Cannula Nasal Cannula Nasal Cannula O2 Flow Rate 2.00 2.00 2.00 2.00 Progress Progress Note #1: Time: 06:30 Progress Note High on the differential would be a recurrence of spontaneous pneumothorax, pleural effusion, pneumonia, coronary disease less likely pericardial tamponade or pericarditis. No muffled heart sounds. Breath sounds are rhonchorous so we will think about things to cause bronchitis such as bacterial or virus. COVID swab. Get some labs, give him some aspirin and obtain a chest x-ray. 500 cc bolus of fluids. Aseptic vital signs are noted. Plan to get the patient's the patient had a CT angiogram of his chest just a few days ago revealing that he does not have aortic aneurysm or evidence of dissec tion making this much less likely. Because the pain radiates through to his back however we will check a lipase. R he does have a large right infrahilar mass 7.7 x 7.2 cm. Progress Note #2: Time: 07:43 Progress Note Discussed the case with Dr. Gamez is familiar with the patient. Soon as the chest tube from came out he had a reaccumulation of his pneumothorax and had to have replacement of a Thora vent by general surgery locally. It appears the Thora vent is not working now as we are not able to get it to extract any air manually using a cannibalized Thora vent kit. Dr. Gamez and this provider feel that is likely that his pneumothorax will continue to reaccumulate as soon as the Thora vent comes out as evidenced by failure after the last 2 Thora vents either came out or stopped working. This is likely due to his metastatic car cinoma of the lung and we explained this to the patient and he agreed. Were going to take the Thora vent out, seal it with Xeroform and gauze and and see how he does. His vital signs are fine. When he talks a lot his oxygen sats will slip down into the upper 80s with a good waveform. We will do a delta troponin at 0930. If he is at baseline then there is no reason to put another chest tube in him. He will just have a chronic pneumothorax. Return precautions were discussed. Patient is aware of the plan and okay with it. Progress Note #3: Time: 09:01 Progress Note Patient's respiratory rate is gone up. His lung sounds are no longer heard on the left side. He seems to be deteriorating although he is maintaining good oxygen saturations. We have elected to go ahead and put a chest tube back in. His specifically requested Dr. Chacon placed the Thora vent so we have called him and he said he will be here shortly. Progress Note #4: Time: 11:[address] Richardson at [facility], oncology. Offer the patient a Anguiano catheter which he declined. We will give him a straight cath per his request and start him on tamsulosin and request to follow- up with his urologist. Progress Note #5: Time: 12:30 Progress Note Discussed the case with Mike Richardson, oncology at . He did just get off the phone with speaking to the family and patient. He did advise them of the poor prognosis and the worsening condition despite the monoclonal antibody. He advised him that everything at this point would be looking towards palliative care and hospice. He says he will follow-up with them whether they want to switch to hospice in a clinic visit in the next day or 2. At this time the only other thing he could offer would be to have the CT surgeons do a chest tube and pleurodesis. He will have his staff reach out to the family to set up an appointment. He agrees the patient does not need admitted. Patient is feeling significantly improved. He has a ride here and is ready to go home Initial ECG Impression Date: Oct 04, 2021 Initial ECG Impression Time: 06:17 Initial ECG Rate: 96 Initial ECG Rhythm: Normal Sinus Initial ECG Intervals: Normal Initial ECG Impression: Normal Comment Normal sinus rhythm without clinically relevant ST changes. Unremarkable intervals. Diagnostic Imaging Diagonstic Imaging: Xray Plain Films/CT/US/NM/MRI: chest Comments Significant left-sided pneumothorax without tension pneumothorax. [facility], [place] NAME: [facility] REC#: [id number] PT STATUS: REG ER : 1945 PHYSICIAN: VIC FLORES MD ADMIT DATE: 10/04/21/ER Draft Date of Exam:10/04/21 CHEST 1 VIEW, AP/PA ONLY INDICATION: Chest pain EXAMINATION: Chest 10/04/2021 at 6:53 a.m. COMPARISON: 09/30/2021 FINDINGS: Since the previous examination, there has been interval development of a large left pneumothorax with likely compressive atelectasis in the left mid and lower lung. Pigtail catheter is seen in the left mid to upper chest. There is atelectasis versus infiltrate at the lung bases with a small right effusion. Heart is normal. Pulmonary vasculature unremarkable. IMPRESSION: 1. Interval development of a large left pneumothorax without evidence for tension. Findings called to Dr. Flores by Dr. Rocha on 10/04/2021 at 7:22 a.m. Other findings as above. Dictated on workstation # [id number] Dict: 10/04/21719 Trans: 10/04/21 0745 JAMAL [id number] Interpreted by: ITZ ROCHA MD Electronically signed by: Reviewed: Reviewed by Me Diagonstic Imaging: Xray Plain Films/CT/US/NM/MRI: chest Comments [facility] [place] NAME: [facility] REC#: [id number] PT STATUS: REG ER : 1945 PHYSICIAN: VIC FLORES MD ADMIT DATE: 10/04/21/ER Draft Date of Exam:10/04/21 CHEST 1 VIEW, AP/PA ONLY CLINICAL INDICATION: Patient with Thora-Vent placement. EXAM: Portable chest x-ray, upright view. COMPARISON: Chest x-ray dated 10/04/2021. FINDINGS: A small bore caliber catheter overlying the left upper lobe is again seen. There is interval decreased size of the left apical pneumothorax with a small amount remaining which is roughly 2.7 cm in craniocaudal dimension compared to the prior study at 9.8 cm in the craniocaudal dimension. There is improved aeration of the left lung with persistent consolidation involving the left lung apex and patchy airspace opacities involving the left midlung field and left lung base. Stable consolidation in the medial right upper lobe and superior right perihilar region. There is a stable small right pleural effusion. The pulmonary vasculature and cardiac silhouette are within normal limits. There are degenerative spurs involving the thoracic spine. IMPRESSION: 1: Small bore caliber tube overlying the left lung apex is again seen. There is interval significant decreased size of the left pneumothorax with a small pneumothorax remaining. 2: There is interval slight improved aeration of the left lung. Persistent consolidation in the left lung apex and patchy airspace opacities involving the left lower lung field region. 3: Stable area of consolidation involving the right upper lobe/superior right perihilar region. Dictated on workstation # [id number] Dict: 10/04/21 1115 Trans: 10/04/21 1123 [id number] Interpreted by: LILI LI MD Electronically signed by: Reviewed: Reviewed by Me Departure Impression Primary Impression: Pneumothorax, left Additional Impressions: Lung cancer Qualified Codes: C34.02 - Malignant neoplasm of left main bronchus Urinary retention due to benign prostatic hyperplasia Disposition: HOME, SELF-CARE Condition: Stable Departure-Patient Inst. Decision time for Depature: 12:52 Referrals: PABLO CHACON JONATHAN L MD (PCP/Family) Primary Care Physician Patient Instructions: Pneumothorax (Collapsed Lung) (DC), Urinary Retention Add. Discharge Instructions: Make sure you are drinking plenty of fluids. Flomax 1 capsule at night until you see your urologist. Return to the ER for inability to pass urine or increasingly worsening shortness of breath or chest pain. Plan to follow-up with your oncologist Dr. Richardson later in the week. You can follow-up with Dr. Chacon if you are having difficulty with the chest tube or if you are having significant worsening shortness of air please return to the ER and we will replace it. All discharge instructions reviewed with patient and/or family. Voiced understanding. Scripts Hydrocodone/Acetaminophen (Hydrocodone-Acetamin 5-325 mg) 5 Mg-325 Mg Tablet 1-2 TAB PO Q6H PRN for PAIN-MODERATE (5-7), #15 TAB 0 Refills Prov: VIC FLORES 10/04/21 Tamsulosin HCl (Flomax) 0.4 Mg Cap 0.4 MG PO HS for 30 Days, #30 CAP 0 Refills Prov: VIC FLORES 10/04/21 VIC FLORES Oct 04, 2021 06:28
[2021-10-04] MEDS ORDERED: ASPIRIN 81 MG CHEW (CHILDREN'S ASA) PO ONE (06:30)
[2021-10-04 06:33] LABS: BASOPHILS % (AUTO) 1 % (0-10); EOSINOPHILS # (AUTO) 0.4 10^3/uL (0.0-0.3); EOSINOPHILS % (AUTO) 7 % (0-10); HEMATOCRIT 37 % (40-54); LYMPHOCYTES # (AUTO) 0.8 10^3/uL (1.0-4.0); LYMPHOCYTES % (AUTO) 14 % (12-44); MEAN CORPUSCULAR HEMOGLOBIN 26 pg (25-34); MEAN CORPUSCULAR HGB CONC 32 g/dL (32-36); MEAN CORPUSCULAR VOLUME 81 fL (80-99); MEAN PLATELET VOLUME 9.6 fL (9.0-12.2); MONOCYTES # (AUTO) 0.5 10^3/uL (0.0-1.0); MONOCYTES % (AUTO) 8 % (0-12); NEUTROPHILS % (AUTO) 70 % (42-75); PLATELET COUNT 266 10^3/uL (130-400); WHITE BLOOD COUNT 5.8 10^3/uL (4.3-11.0)
[2021-10-04 06:46] LABS: INR 1.3 (0.8-1.4); PROTHROMBIN TIME PATIENT 16.3 SEC (12.2-14.7)
[2021-10-04 06:55] LABS: ALBUMIN 3.4 GM/DL (3.2-4.5); BILIRUBIN,TOTAL 0.5 MG/DL (0.1-1.0); CALCIUM 8.9 MG/DL (8.5-10.1); CREATININE SERUM 1.02 MG/DL (0.60-1.30); MAGNESIUM 1.8 MG/DL (1.6-2.4); POTASSIUM 3.9 MMOL/L (3.6-5.0); TOTAL PROTEIN 5.8 GM/DL (6.4-8.2)
[2021-10-04] MEDS ORDERED: NITROGLYCERIN 0.4 MG SL TABS BTL 25'S SL PRN (07:00)
--- NOTE | 2021-10-04 07:45 | Diagnostic Imaging Report ---
INDICATION: Chest pain EXAMINATION: Chest 10/04/2021 at 6:53 a.m. COMPARISON: 09/30/2021 FINDINGS: Since the previous examination, there has been interval development of a large left pneumothorax with likely compressive atelectasis in the left mid and lower lung. Pigtail catheter is seen in the left mid to upper chest. There is atelectasis versus infiltrate at the lung bases with a small right effusion. Heart is normal. Pulmonary vasculature unremarkable. IMPRESSION: 1. Interval development of a large left pneumothorax without evidence for tension. Findings called to Dr. Flores by Dr. Rocha on 10/04/2021 at 7:22 a.m. Other findings as above. Dictated by: Dictated on workstation # [id number]
[2021-10-04] MEDS ORDERED: LIDOCAINE 1% INJ 20 ML VIAL ONE (10:15)
--- NOTE | 2021-10-04 11:24 | Diagnostic Imaging Report ---
CLINICAL INDICATION: Patient with Thora-Vent placement. EXAM: Portable chest x-ray, upright view. COMPARISON: Chest x-ray dated 10/04/2021. FINDINGS: A small bore caliber catheter overlying the left upper lobe is again seen. There is interval decreased size of the left apical pneumothorax with a small amount remaining which is roughly 2.7 cm in craniocaudal dimension compared to the prior study at 9.8 cm in the craniocaudal dimension. There is improved aeration of the left lung with persistent consolidation involving the left lung apex and patchy airspace opacities involving the left midlung field and left lung base. Stable consolidation in the medial right upper lobe and superior right perihilar region. There is a stable small right pleural effusion. The pulmonary vasculature and cardiac silhouette are within normal limits. There are degenerative spurs involving the thoracic spine. IMPRESSION: 1: Small bore caliber tube overlying the left lung apex is again seen. There is interval significant decreased size of the left pneumothorax with a small pneumothorax remaining. 2: There is interval slight improved aeration of the left lung. Persistent consolidation in the left lung apex and patchy airspace opacities involving the left lower lung field region. 3: Stable area of consolidation involving the right upper lobe/superior right perihilar region. Dictated by: Dictated on workstation # [id number]
[2021-10-04] MEDS ORDERED: TAMSULOSIN 0.4 MG (FLOMAX) CAP PO ONE (11:45)
[2021-10-04] MEDS ORDERED: TMSL.4C PO (11:56)
[2021-10-04 13:08] VITALS: BP 111/75
[2021-10-04] MEDS ORDERED: ACHD5005 PO (15:42)
--- NOTE | 2021-10-04 19:42 | Consultation - Surgery ---
History of Present Illness History of Present Illness Patient Consulted On(shauna/time) 10/04/21 19:36 Date Seen by Provider: Oct 04, 2021 Time Seen by Provider: 10:14 History of Present Illness Consult requested by Dr. MARTINEZ for left pneumothorax Seen and evaluated in the emergency department. 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 He has had been having issues with left pneumothorax. He has had Thora vents placed. He is has his oncology at . Patient was having incr easing shortness of breath left chest pain that also radiated to his back. Having some shortness of breath at times. It is worsening than normal. He had a Thora vent previously placed but this was not functioning and so it was removed. Patient was recently admitted and discharged as well he states. He has known nausea vomiting fever sweats chills. Patient and family understand that he is getting close to palliative/hospice care. Allergies and Home Medications Allergies Coded Allergies: No Known Drug Intolerances (Verified Allergy, Unknown, 09/23/21) Patient Home Medication List Home Medication List Reviewed: Yes Acetaminophen (Tylenol) 325 Mg Capsule, 325 MG PO Q4H PRN for PAIN-MILD (1-4), (Reported) Entered as Reported by: WEST WALKER on 09/29/21 1505 Benzonatate (Benzonatate) 100 Mg Capsule, 100 MG PO TID PRN for COUGH, (Reported) Entered as Reported by: WEST WALKER on 09/29/21 1505 Cefdinir (Cefdinir) 300 Mg Capsule, 300 MG PO BID Prescribed by: MATILDE HUYNH on 09/29/21 1122 Diazepam (Diazepam) 5 Mg Tablet, 5 MG PO Q6H PRN for ANXIETY, (Reported) Entered as Reported by: WEST WALKER on 09/29/21 1505 Gabapentin (Neurontin) 300 Mg Capsule, 300 MG PO TID PRN for PAIN-BREAKTHROUGH, (Reported) Entered as Reported by: WEST WALKER on 09/29/21 1545 Guaifenesin (Mucinex) 600 Mg Tab.er.12h, 600 MG PO BID, (Reported) Entered as Reported by: WEST WALKER on 09/29/21 1505 Hydrocodone/Acetaminophen (Hydrocodone-Acetamin 5-325 mg) 5 Mg-325 Mg Tablet, 1- 2 TAB PO Q6H PRN for PAIN-MODERATE (5-7) Prescribed by: VIC MARTINEZ on 10/04/21 1543 Metoprolol Tartrate (Metoprolol Tartrate) 25 Mg Tablet, 25 MG PO BID, (Reported) Entered as Reported by: WEST WALKER on 09/29/21 1505 Omeprazole (Omeprazole) 20 Mg Capsule.dr, 20 MG PO DAILY, (Reported) Entered as Reported by: WEST WALKER on 09/29/21 1505 Polyethylene Glycol 3350 (Miralax) 17 Gram Powd.pack, 17 GM PO DAILY, (Reported) Entered as Reported by: WEST WALKER on 09/29/21 1505 Sennosides/Docusate Sodium (Senna-S 8.6-50 mg Tablet) 8.6 Mg-50 Mg Tablet, 2 EACH PO BID, (Reported) Entered as Reported by: WEST WALKER on 09/29/21 1505 Tamsulosin HCl (Flomax) 0.4 Mg Cap, 0.4 MG PO HS Prescribed by: VIC MARTINEZ on 10/04/21 1156 Past Jbkbuyc-Gvecsq-Ymcpfu Hx Patient Social History Smoking Status: Former Smoker Alcohol Use?: No Have you traveled recently?: No Surgeries History of Surgeries: Yes Surgeries: Amputation, Gallbladder Respiratory History of Respiratory Disorde: Yes (Pneumothorax, Stage IV Lung CA) Respiratory Disorders: COPD Cardiovascular History of Cardiac Disorders: Yes Cardiac Disorders: Cardiomyopathy Musculoskeletal History of Musculoskeletal Dis: Yes Musculoskeletal Disorders: Amputee Cancer History of Cancer: Yes (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) Cancer: Lung Reviewed Nursing Assessment Reviewed/Agree w Nursing PMH: Yes Family Medical History Significant Family History: No Pertinent Family Hx Review of Systems-General Constitutional: No chills, No diaphoresis EENTM: No blurred vision, No double vision Respiratory: cough, dyspnea on exertion, short of breath Cardiovascular: chest pain (Left chest); No palpitations Gastrointestinal: No abdominal pain, No nausea, No vomiting Genitourinary: No decreased output, No discharge Musculoskeletal: No back pain, No joint pain Skin: No change in color, No change in hair/nails Psychiatric/Neurological: Denies Anxiety, Denies Depressed, Denies Emotional Problems All Other Systems Reviewed Negative Unless Noted: Yes (Negative excepted noted.) Physical Exam-General Problems Physical Exam Vital Signs Vital Signs - First Documented Capillary Refill : General Appearance: mild distress, other (chronically ill) HEENT: PERRL/EOMI, normal ENT inspection Neck: non-tender, supple Respiratory: chest non-tender, other (slighly labored breathing appears uncomfortable) Cardiovascular: no JVD, tachycardia Gastrointestinal: non tender, soft Rectal: deferred Back: no CVA tenderness, no vertebral tenderness Extremities: non-tender, other (right upper extremity partial amputation) Neurologic/Psychiatric: alert, oriented x 3 Skin: normal color, warm/dry Lymphatic: no adenopathy Data Review Labs Laboratory Tests 10/04/21 06:24: White Blood Count 5.8, Red Blood Count 4.61, Hemoglobin 12.0L, Hematocrit 37L, Mean Corpuscular Volume 81, Mean Corpuscular Hemoglobin 26, Mean Corpuscular Hemoglobin Concent 32, Red Cell Distribution Width 15.0H, Platelet Count 266, Mean Platelet Volume 9.6, Immature Granulocyte % (Auto) 0, Neutrophils (%) (Auto) 70, Lymphocytes (%) (Auto) 14, Monocytes (%) (Auto) 8, Eosinophils (%) (Auto) 7, Basophils (%) (Auto) 1, Neutrophils # (Auto) 4.0, Lymphocytes # (Auto) 0.8L, Monocytes # (Auto) 0.5, Eosinophils # (Auto) 0.4H, Basophils # (Auto) 0.0, Immature Granulocyte # (Auto) 0.0, Prothrombin Time 16.3H, INR Comment 1.3, Activated Partial Thromboplast Time 31, D-Dimer 1.62H, Sodium Level 139, Potassium Level 3.9, Chloride Level 107, Carbon Dioxide Level 21, Anion Gap 11, Blood Urea Nitrogen 15, Creatinine 1.02, Estimat Glomerular Filtration Rate 76, BUN/Creatinine Ratio 15, Glucose Level 100, Calcium Level 8.9, Corrected Calcium 9.4, Magnesium Level 1.8, Total Bilirubin 0.5, Aspartate Amino Transf (AST/SGOT) 16, Alanine Aminotransferase (ALT/SGPT) 16, Alkaline Phosphatase 91, Myoglobin 70.8, Troponin I < 0.028, C-Reactive Protein High Sensitivity 2.05H, B-Type Natriuretic Peptide 40.8, Total Protein 5.8L, Albumin 3.4, Lipase 24 10/04/21 06:39: Influenza Type A (RT-PCR) Not Detected, Influenza Type B (RT-PCR) Not Detected, SARS-CoV-2 RNA (RT-PCR) Not Detected 10/04/21 09:30: Troponin I < 0.028 Assessment/Plan Assessment/Plan Assessment/Plan left pneumothorax metastatic sarcoma shortness of breath patient understands risks and benefits of left thoravent placement along with family will place. chest x ray to follow discussed that likely at the end of treatment with metastatic sarcoma and may need to proceed with palliative/hospice care. Oncology at is discussing with family and other option is to get opinion of ct surgery. patient and family do understand this. PROCEDURE: Left thoravent placement The patient was lying down in the supine position. The left chest was prepped and draped in sterile fashion. Timeout was performed. Local anesthetic was infiltrated at the midclavicular line approximately the fourth rib interspace. An 11-blade scalpel was used to make a small skin incision. The Thora-Vent was then inserted through the anterior chest wall. Once this popped into the chest cavity, the catheter was then advanced, and the trocar was removed. The Thora-Vent was secured in the usual fashion. Air was evacuated. The patient tolerated procedure well without any complications. Chest x-ray pending. Clinical Quality Measures AMI/AHF: ASA po Prior to arrival: PABLO Franco DO Oct 04, 2021 19:42
== END 2021-10-04 13:08 | disposition home or self-care (01) ==
LOC: EDUNIT# 06:05 → ER 06:07
DX: J93.9 Pneumothorax, unspecified (principal); C34.92 Malignant neoplasm of unspecified part of left bronchus or lung; N40.1 Benign prostatic hyperplasia with lower urinary tract symptoms; R33.8 Other retention of urine; I48.91 Unspecified atrial fibrillation; Z87.891 Personal history of nicotine dependence; Z79.01 Long term (current) use of anticoagulants; Z99.81 Dependence on supplemental oxygen; Z90.79 Acquired absence of other genital organ(s); Z20.822 Contact with and (suspected) exposure to COVID-19
CPT/HCPCS: 36415; 71045; 80053; 83690; 83735; 83874; 83880; 84484; 85025; 85379; 85610; 85730; 86141; 87636; 93005; 93041

== ENCOUNTER → 2021-10-12 | Outpatient (CLI) | payer MEDICARE ==
[~2021-10-12] MED LIST changes: +ACHD5005 PO; +TMSL.4C PO
--- NOTE | 2021-10-12 15:52 | Diagnostic Imaging Report ---
Indication: Pneumothorax. Time of Exam: 12:06 PM Comparison is made with prior chest from 10/04/2021. The left-sided pneumothorax has increased in size since exam 8 days earlier. Pneumothorax now measures 9.6 cm from the pleural line to the apex. Thora Vent orientation is different when compared with prior exam. A right-sided effusion is moderate. Mass in the right suprahilar region is again noted. IMPRESSION: Increase in size of left-sided pneumothorax when compared with examination from 10/04/2021. Results were discussed with Dr. Aj prior to this dictation. Dictated by: Dictated on workstation # [id number]
== END ==
LOC: RAD 11:36
PROVIDERS: ATTEND Surgery
DX: J93.9 Pneumothorax, unspecified (principal)
CPT/HCPCS: 71046